=== PATIENT | female | born 1940 | race Caucasian/White ===

== ENCOUNTER 2018-11-18 19:23 | Inpatient (IN) ==
[2018-11-18] MEDS ORDERED: ZOFRAN IV ONE (20:30)
[2018-11-18] MEDS ORDERED: NS 1,000 ML IV ONE (20:30)
[2018-11-18 20:53] LABS: BASO# 0.04 X1000 (0.0-0.2); BASO% 0.5 % (0.0-0.8); EOS# 0.16 X1000 (0.0-0.7); HEMATOCRIT 39.4 % (37.0-47.0); HEMOGLOBIN 12.4 g/dL (12.0-16.0); IMM GRAN# 0.02 X1000 (0.0-0.04); IMM GRAN% 0.2 % (0.0-0.5); LYMPH# 1.41 X1000 (1.2-3.4); LYMPH% 17.6 % (20.5-51.1); MCH 28.5 PG (27-31); MCHC 31.5 g/dL (33-37); MCV 90.6 FL (81-99); MONO# 0.76 X1000 (0.11-0.59); MONO% 9.5 % (1.7-9.3); MPV 9.5 FL (7.4-10.4); NEUT# 5.62 X1000 (1.4-6.5); NEUT% 70.2 % (42.2-75.2); PLT 368 X1000 (130-400); RBC 4.35 XMIL (4.2-5.4); WBC 8.01 X1000 (4.8-10.8)
--- NOTE | 2018-11-18 20:59 | Diag Imaging Result Doc PS360 ---
EXAM: CHEST-2 VIEWS - 11/18/2018 HISTORY: fevers TECHNIQUE: Chest two views, 01/19/2018 chest two views COMPARISON: 08/16/2018 portable chest FINDINGS: Heart size is normal. There are apparent mild COPD/emphysematous changes. There is stable mild scarring at the anterior base of the chest. There are no acute changes identified. There is no consolidation, pleural effusion, or pneumothorax identified. IMPRESSION: Mild COPD/emphysematous changes. No other evidence of acute disease. Electronically signed by Marty Landis 11/18/2018 8:57 PM
[2018-11-18 21:08] LABS: AGAP 10; ALB/GLOB RATIO 1.5; ALBUMIN 4.4 g/dL (3.5-5.0); ALKALINE PHOSPHATASE 76 U/L (32-104); AMYLASE 52 U/L (20-200); BUN 6 mg/dL (8-22); CALCIUM 9.9 mg/dL (8.8-10.2); CHLORIDE 94 mmol/L (98-107); COSMO 271; CREATININE 0.5 mg/dL (0.5-0.9); ESTIMATED GFR > 60; GLUCOSE 98 mg/dL (70-104); GOT 23 U/L (10-30); GPT 21 U/L (10-36); LIPASE 21 U/L (13-60); POTASSIUM 3.9 mmol/L (3.5-5.1); SODIUM 137 mmol/L (136-145); TCO2 33 mmol/L (25-35); TOTAL BILIRUBIN 0.16 mg/dL (0.20-1.00); TOTAL PROTEIN 7.4 g/dL (6.3-8.3)
[2018-11-18 21:26] LABS: URINE SOURCE CLEAN CATCH
[2018-11-18 21:30] LABS: BILIRUBIN URINE NEGATIVE (NEGATIVE); BLOOD URINE NEGATIVE (NEGATIVE); COLOR YELLOW; GLUCOSE URINE NEGATIVE (NEGATIVE); KETONE URINE NEGATIVE (NEGATIVE); LEUKOCYTES URINE LARGE (NEGATIVE); NITRITE URINE NEGATIVE (NEGATIVE); PROTEIN URINE 70 mg/dL (NEGATIVE); SP GRAVITY URINE 1.014; TURBIDITY URINE CLEAR (CLEAR); UROBILINOGEN URINE NORMAL (NORMAL)
[2018-11-18 21:31] LABS: UR EPITHELIAL CELLS <10 /HPF (<10); URINE BACTERIA NEGATIVE /HPF; URINE RBC <10 /HPF (<10); URINE WBC TNTC /HPF (<10)
--- NOTE | 2018-11-18 21:47 | PROVIDER DOCUMENTATION ---
This chart was entered by Ava Gutierrez Scribe, acting as scribe for Rossy Castellanos MD. HPI-General Adult - General Chief Complaint: General Adult Stated Complaint: FEVER, NAUSEA Time Seen by Provider: 11/18/18 19:35 Source: patient Allergies/Adverse Reactions: Patient Allergies Allergy/AdvReac Type Severity Reaction Status Date / Time benazepril HCl * Allergy Unknown Unknown Verified 08/16/18 12:35 [From Lotrel] codeine Allergy Unknown Unknown Verified 08/16/18 12:35 dexamethasone Allergy Unknown Unknown Verified 08/16/18 12:35 ibandronate sodium Allergy Unknown Unknown Verified 08/16/18 12:35 [From Boniva] nebivolol HCl * Allergy Unknown Unknown Verified 08/16/18 12:35 [From Bystolic] amlodipine besylate * Allergy Unknown Verified 08/16/18 12:35 [From Lotrel] bacitracin [From Polysporin] Allergy Unknown Verified 08/16/18 12:35 polymyxin B sulfate * Allergy Unknown Verified 08/16/18 12:35 [From Polysporin] Home Medications: Home Medication List Medication Instructions Recorded Confirmed Last Taken Type Budesonide/Formoterol Fumarate 4 puff INH DAILY 10/08/13 12/29/17 01/09/17 17:00 History [Symbicort 160-4.5 Mcg Inhaler] Ergocalciferol (Vitamin D2) 2,000 units PO DAILY 10/08/13 12/29/17 12/29/17 06:30 History [Vitamin D] Tiotropium [place] Inhaler 1 cap INH DAILY 10/08/13 12/29/17 01/09/17 13:00 History [Spiriva] Omeprazole [Prilosec] 40 mg PO DAILY@0700 #0 capsule 04/13/15 12/29/17 12/29/17 06:30 Rx Loratadine 10 mg PO DAILY #30 tablet 04/15/15 12/29/17 12/29/17 06:30 Rx Albuterol Sulfate [Proair Hfa] 2 puff IH Q4H PRN PRN 01/09/17 12/29/17 12/29/17 06:30 History Multivitamin with Minerals [Hair, 1 each PO DAILY 01/09/17 12/29/17 01/09/17 13:00 History Skin & Nails] Ondansetron [Zofran] 4 mg PO Q6H PRN PRN #20 tablet 01/10/17 12/29/17 Unknown Rx Hydralazine [Apresoline] 25 mg PO BID #60 tab 01/03/18 Unknown Rx Lorazepam [Ativan] 0.5 mg PO BID PRN PRN #0 01/03/18 12/30/17 12/29/17 09:00 Rx Prednisone 10 mg PO DAILY #30 tab 01/03/18 Unknown Rx - History of Present Illness -Gen Adult Nature of Presenting Problems: Pt is 78/F presenting to ED w/ c/o nausea, h/a and elevated BP,HR and fever of 101 at home. She sts that she took 2 Tylenol. She denies any diarrhea or constipation and denies ABD pain. Denies any dysuria or cough or congestion. SX all started today around 3pm. HX of HTN and COPD. Pt is on home oxygen. Location of Pain/Injury: reports: abdomen (nausea) Severity: reports: mild Onset/Duration: reports: 4-6 hours ago Timing: reports: still present Context/Activities at Onset: reports: none Modifying Factors: improves with: nothing Associated Symptoms: reports: fever/chills, nausea. denies: chest pain, constipation, diaphoresis, diarrhea, shortness of breath, vomiting Similar Symptoms Previously?: No Recently seen or treated by another doctor?: No Review of Systems - Adult - REVIEW OF SYSTEMS - ADULT Constitutional: reports: no symptoms reported. denies: chills, fever Eyes: reports: no symptoms reported Ears, Nose, Mouth & Throat: reports: no symptoms reported Cardiovascular: reports: no symptoms reported. denies: chest pain Respiratory: reports: no symptoms reported. denies: cough, shortness of breath Gastrointestinal: reports: nausea. denies: abdominal pain, constipation, diarrhea, vomiting Genitourinary: reports: no symptoms reported Musculoskeletal: reports: no symptoms reported Integumentary: reports: no symptoms reported Neurological: reports: no symptoms reported. denies: dizziness/vertigo, headache/migraines Psychiatric: reports: no symptoms reported Endocrine: reports: no symptoms reported Hematologic/Lymphatic: reports: no symptoms reported Allergic/Immunologic: reports: no symptoms reported All Other Systems: Reviewed and Negative Past History - Adult - PAST MEDICAL HISTORY-ADULT Review of Records: reports: Old Records Reviewed, Nursing Assessment Review, Medications Reviewed, Social history reviewed & non-contributory. Major Childhood Illnesses: reports: denies history Cardiovascular: reports: denies history, HTN Respiratory: reports: denies history, COPD Gastrointestinal: reports: denies history, GERD Obstetrical/Gynecological: reports: denies history Genitourinary: reports: denies history Musculoskeletal: reports: denies history Neurological: reports: denies history, headaches/migraines Endocrine/Immune: reports: denies history Other Conditions: reports: denies history - PRIOR SURGERIES/PROCEDURES Surgical/Procedure History: reports: hysterectomy, tonsillectomy - IMMUNIZATION STATUS Childhood Immunizations: See Nurse Assessment Flu Vaccine: See Nurse Assessment - FAMILY HISTORY Family History: reviewed, not pertinent - SOCIAL HISTORY Smoking: quit greater than 1 year Substance Use: none/never Alcohol Use Frequency: never Living Situation: family Physical Exam-General - PHYSICAL EXAM-ADULT Initial Vital Signs Reviewed: Yes - CONSTITUTIONAL General Appearance: appears well, alert, mild distress (uncomfortable appearing) - EYES Eyes: PERRL/EOMI, pink conjunctivae - NECK Neck: non-tender, full range of motion, supple, normal inspection - RESPIRATORY Respiratory: chest non-tender, decreased breath sounds (mildly decreased breath sounds), wheezing (scant wheezing) - CARDIOVASCULAR Cardiovascular: normal peripheral pulses, no murmur, tachycardia (103, mildly tachycardic) - GASTROINTESTINAL (ABDOMEN) Abdominal Exam: normal bowel sounds, non tender, soft - LYMPHATIC Lymphatic: no adenopathy - MUSCULOSKELETAL Back Exam: normal inspection, no CVA tenderness, no vertebral tenderness Extremity: normal range of motion, non-tender, normal gait, normal inspection - SKIN Integumentary: normal color, warm/dry - NEUROLOGIC Neurologic: grossly normal - PSYCHIATRIC Psych/Mental Status: normal mood/affect, normal thought content, normal thought process, oriented x 3 Progress - PLAN OF CARE/RESULTS Progress/Plan/Lab Results: Vital Signs - 8 hr 11/18/18 19:28 Temperature 97.5 F L Pulse Rate 103 H Respiratory Rate 22 Blood Pressure 186/83 O2 Sat by Pulse Oximetry 98 Patient with weakly positive UA with LE but negative bacteria. Will treat given that there is no other source. She has had no fevers here but took tylenol prior to arrival. WBC normal. CT showing nothing acute except for distended GB without stones. SPoke to Dr Andujar about OBS admission to wait for urine culture, monitor for fever and get a possible RUQ US in the AM. He accepted for OBS admission. Further orders to be placed by hospitalist team. Nausea well controlled at this time. Result Diagrams: 11/18/18 20:08 11/18/18 20:08 - CT/MRI 1 CT Study: Abdomen Impression: See EMR Report (Sequela prior granulomatous infection, no acute intraperitoneal abnormality, no free air or fluid, distended gallbladder without stones, extensive diverticulosis of the descending and sigmoid colon segments without inflammation.) - CONSULTS/PCP/HOSPITALIST Notification #1 *Consult/PCP/Hospitalist*: Dr Andujar Time Discussed: 00:03 Consult Disposition: Admit Departure - Departure Date of Disposition Decision: 11/19/18 Time of Disposition Decision: 00:01 DIAGNOSIS: Nausea & vomiting Qualifiers: Vomiting Intractability: non-intractable UTI (urinary tract infection) Qualifiers: Urinary tract infection type: acute cystitis Hematuria presence: without hematuria Qualified Code(s): N30.00 - Acute cystitis without hematuria Disposition: ADMITTED INPATIENT 09 Certified Medical Emergency: Emergent Condition: Stable Referrals and Follow-Ups: Zion Bergman DO [Primary Care Provider] - - Critical Care Note This patient required my direct & personal management of CC.: No Attestation - Physician/ MOSES Attestation Patient care was provided by Advanced Practice Provider:: No The physician spent face to face time with patient:: Yes Advanced Practice Provider documentation review:: Supervising physician onsite and consulted in the evaluation and care of this patient. The physician did have a face to face encounter with the patient. This chart was documented by the indicated scribe, (Ava Gutierrez Scribe) and accurately reflects the services I performed and decisions made by me, Rossy Castellanos MD, as attested by the provider's signature.
[2018-11-19] MEDS ORDERED: ROCEPHIN 1 GM in NS 50 ML IV ONE (00:01)
[2018-11-19] MEDS ORDERED: ZOFRAN IV ONE (00:07)
[2018-11-19] MEDS ORDERED: ZOFRAN IV PRN (03:11)
[2018-11-19] MEDS: NS 1,000 ML IV SCH ×2 (03:49→18:58)
--- NOTE | 2018-11-19 04:38 | HISTORY AND PHYSICAL ---
PRIMARY CARE PHYSICIAN: Dr. Zion Bergman. CHIEF COMPLAINT: Nausea, fever. HISTORY OF PRESENTING ILLNESS: A 78-year-old female with a history of COPD on 4 L of home oxygen and hypertension had presented to emergency department with several days history of having persistent nausea. The patient states that today she was having some fevers. The patient subsequently had come to the emergency department. In the ED, she was evaluated and due to her presenting symptoms it was thought that we will place her for observation for further evaluation and management. At the time of my examination, patient denied any headache, chest pain, shortness of breath or any weight changes, but complained of having fever and persistent nausea. PAST MEDICAL HISTORY: Includes COPD on home oxygen and hypertension. PAST SURGICAL HISTORY: Tonsillectomy, hysterectomy. ALLERGIES: Codeine and dexamethasone, benazepril. CURRENT MEDICATIONS: Include albuterol inhaler 2 puffs q.4 hours, hydralazine 25 mg p.o. b.i.d., irbesartan 150 mg p.o. daily, Lorazepam 0.5 mg p.o. b.i.d., omeprazole 40 mg p.o. daily. SOCIAL HISTORY: She is a former smoker. No history of alcohol or illicit drug use. FAMILY HISTORY: Positive for coronary artery disease in mother. REVIEW OF SYSTEMS: Fourteen point review of systems as listed in HPI. Other systems negative. PHYSICAL EXAMINATION: GENERAL: Cooperative, friendly elderly female. She is resting more comfortably now. VITAL SIGNS: Temperature 97.5 degrees, pulse 103, respirations 22, blood pressure 186/83. HEENT: Atraumatic, normocephalic. Extraocular movements intact. PERRLA. NECK: No masses. CHEST: Scattered wheezes. CARDIOVASCULAR: Regular rate and rhythm. ABDOMEN: Soft, positive bowel sounds. EXTREMITIES: No edema. NEUROLOGIC: She is awake, alert, oriented x3. GENITOURINARY: No bladder distention. SKIN: Warm. LABORATORIES AND STUDIES: UA shows large leukocytes. Sodium 137, potassium 3.9, chloride 94, CO2 is 33, BUN is 6, creatinine 0.5, glucose 98. WBCs 8.01, hemoglobin 12.4, hematocrit 39.4, platelets 368,000. Chest x-rays shows COPD. ASSESSMENT: A 78-year-old female with a history of chronic obstructive pulmonary disease and hypertension presented to emergency department with several days history of having persistent nausea. Due to her presenting symptoms, we will place her for observation for further evaluation and management. 1. Persistent nausea. 2. Fever. 3. Suspected urinary tract infection. 4. Chronic obstructive pulmonary disease. 5. Hypertension. PLAN: 1. We will admit patient to medical floor with telemetry. 2. We will continue with supportive care with IV fluids, antiemetics. 3. We will check blood cultures. 4. We will check urine cultures. Start patient on empiric antibiotics. 5. Continue with DuoNebs and supplement oxygen. 6. We will monitor blood pressure. Resume antihypertensive agent. 7. Put patient on DVT prophylaxis with SCD. 8. We will continue to follow, and reassess and make further recommendation based on patient's clinical course. cc: MD Zion Dyer DO
[2018-11-19] MEDS: PRILOSEC PO SCH (06:01)
--- NOTE | 2018-11-19 07:15 | Diag Imaging Result Doc PS360 ---
EXAM: CT ABD/PELVIS W/IV CONT ONLY 11/18/2018 HISTORY: nausea, vomiting, fevers TECHNIQUE: This exam was performed using automated exposure control, adjustment of mA or kV according to patient size, and/or use of iterative reconstruction technique. COMMENT: The current examination is compared with the previous study of 04/10/2015. There are emphysematous changes in the lung bases as well as some fibrosis in the right middle lobe and lingula. There is a calcified nodule just above the right hemidiaphragm in the right lower lobe. There has been no appreciable change in the visualized portion of the chest since the previous study. There are numerous granulomata present in the liver and spleen. The adrenal glands are not enlarged. The aorta is partially calcified but there is no evidence of aneurysm. The mesenteric and renal arteries are patent. The pancreas is within normal limits. There are no apparent gallstones. The adrenal glands are not enlarged. The kidneys are without evidence of hydronephrosis or mass. There is some diverticulosis in the colon. There is a fair amount of stool in the ascending colon. The small bowel is not distended. Pelvis: There is no evidence of significant adenopathy or free fluid. There has been hysterectomy. There is marked diverticulosis in the sigmoid colon without evidence of active diverticulitis. The appendix is unremarkable. The urinary bladder is not distended. There is bilateral spondylolysis at L5. There are degenerative disc changes in the lumbar spine with mild curvature to the right. Compared to the previous study the appearance of the abdomen and pelvis has not changed significantly. IMPRESSION: Mild constipation and diverticulosis coli. No evidence of acute disease. COPD. Granulomatous changes. Electronically signed by Booker Gary 11/19/2018 7:12 AM
[2018-11-19] MEDS: DUONEB (A & A) INH PRN ×3 (07:58→21:36)
[2018-11-19] MEDS: APRESOLINE PO SCH ×2 (08:38→21:58)
[2018-11-19] MEDS: AVAPRO PO SCH (08:38)
[2018-11-19] MEDS: MIRALAX PO SCH ×2 (08:48→21:58)
[2018-11-19] MEDS: ATIVAN PO PRN ×2 (10:45→21:58)
--- NOTE | 2018-11-19 11:11 | GASTROENTEROLOGY CONSULTATION ---
DATE: 11/19/2018 ATTENDING PHYSICIAN: Dr. Bray. PRIMARY CARE PHYSICIAN: Dr. Zion Bergman. REASON FOR CONSULTATION: Nausea. HISTORY OF PRESENT ILLNESS: Ms. Camacho is a 78-year-old female who was admitted on 11/19/2018 for nausea and fever. The patient has history of COPD, and she is on 4 L home oxygen. She has history of chronic hypertension. According the patient, at home her blood pressure shot up, and she became nauseous and presented to the ER. In the hospital, she had imaging in the form of CAT scan which showed: 1. Mild constipation. 2. Diverticulosis coli. 3. Chronic obstructive pulmonary disease. 4. Granulomatous changes. 5. No apparent gallstones. 6. Fair amount of stool in the ascending colon. 7. Marked diverticulosis in the sigmoid colon without evidence of diverticulitis. 8. Status post hysterectomy. The patient denies any vomiting or vomiting blood. She has had an EGD and colonoscopy few years per Dr. Gutierrez. PAST MEDICAL HISTORY: 1. COPD, on home oxygen. 2. Hypertension. 3. Constipation. 4. Diverticulosis. PAST SURGICAL HISTORY: Tonsillectomy, hysterectomy, EGD, colonoscopy. ALLERGIES: Codeine, dexamethasone, and benazepril. SOCIAL HISTORY: She is a former smoker with no history of alcohol or illicit drug abuse. FAMILY HISTORY: Positive for coronary artery disease in mother. REVIEW OF SYSTEMS: A 14 point review of systems is as listed in HPI. Other systems negative. MEDICATIONS IN THE HOSPITAL: Include Dulcolax 10 mg per rectum at bedtime, albuterol/ipratropium, hydralazine, Avapro, Ativan, normal saline 80 mL/h, Prilosec 40 mg daily, Zofran 4 mg IV every 4 hours, MiraLAX 17 g p.o. b.i.d., ceftriaxone once daily. The patient is currently n.p.o. PHYSICAL EXAMINATION: Vital signs: Temperature of 98.3 degrees, pulse 104, respiratory rate 22, blood pressure 162/70, saturating 99% on 4 L nasal cannula. Weight: Body weight of 105 pounds 14.4 ounces. BMI 21.41 kg/m2. General Appearance: Ms. Camacho is moderately built, moderately nourished, lying in bed, in no acute distress. HEENT: No pallor. No icterus. Pupils equal and reactive to light. The neck is supple. The abdomen is soft, nontender, nondistended. No guarding or rebound. Extremities: No cyanosis, clubbing. Neurologic: Alert, awake, oriented x3. DIAGNOSTIC STUDIES: Hemoglobin 12.4, hematocrit 39.4, white count of 8.01, platelet count of 368,000. Sodium 137, potassium 3.9, chloride 94, bicarbonate 36, anion gap 10, BUN 6, creatinine 0.5, glucose of 98, calcium 9.9, total bilirubin 0.16, AST 23, ALT 21, alkaline phosphatase 76, total protein 7.4, albumin 4.4. Amylase 52, lipase 21. Lactate 1. Urinalysis showing positive protein, large leukocytes. Urine culture preliminary showing no growth. Flu screen is negative for A and B. Blood culture times x2 are currently drawn. They are pending. IMPRESSION AND PLAN: 1. Nausea. 2. Fever, but since being in the hospital, her vitals have not documented fever as of yet. 3. Suspected urinary tract infection. 4. Chronic obstructive pulmonary disease, on home oxygen at 4 L. 5. Former smoker. 6. Diverticulosis. 7. Constipation in the right colon. 8. Hypertension. RECOMMENDATIONS: 1. She has been galvan cultured. Follow the results of the cultures. 2. Continue IV fluids and IV antiemetics. 3. We will start her on MiraLAX twice daily. 4. We will start her on Dulcolax 10 mg once daily. 5. We will start her on liquid diet today. 6. We will start on PPIs in the form of Prilosec once daily. 7. The patient will continue on DuoNeb and supplemental oxygen per the primary team. 8. She has possible UTI. She is on empiric antibiotics of ceftriaxone with the primary team. 9. GI prophylaxis with PPIs. 10. Deep venous thrombosis prophylaxis with SCDs. We will follow along. The above plans were discussed with the patient, and all questions were answered. Please call us with any further questions. cc: MD Zion Soto DO Lloyd James, MD MTDD
[2018-11-19] MEDS: DULCOLAX PR SCH (21:58)
[2018-11-20] MEDS: ROCEPHIN 1 GM in NS 50 ML IV SCH (00:58)
[2018-11-20] MEDS: DUONEB (A & A) INH PRN ×2 (03:47→07:40)
[2018-11-20] MEDS: PRILOSEC PO SCH (06:34)
[2018-11-20 06:36] LABS: HEMATOCRIT 36.5 % (37.0-47.0); HEMOGLOBIN 11.4 g/dL (12.0-16.0); MCHC 31.2 g/dL (33-37); MCV 92.9 FL (81-99); PLT 333 X1000 (130-400); RBC 3.93 XMIL (4.2-5.4); RDW 12.1 % (11.5-14.5); WBC 6.62 X1000 (4.8-10.8)
[2018-11-20 06:37] LABS: BASO# 0.05 X1000 (0.0-0.2); BASO% 0.8 % (0.0-0.8); EOS# 0.21 X1000 (0.0-0.7); EOS% 3.2 % (0.0-10.0); LYMPH% 24.2 % (20.5-51.1); MONO# 0.75 X1000 (0.11-0.59); MONO% 11.3 % (1.7-9.3); MPV 9.5 FL (7.4-10.4); NEUT# 4.01 X1000 (1.4-6.5); NEUT% 60.5 % (42.2-75.2)
[2018-11-20 06:48] LABS: AGAP 8; BUN 3 mg/dL (8-22); CALCIUM 9.1 mg/dL (8.8-10.2); CHLORIDE 101 mmol/L (98-107); COSMO 279; CREATININE 0.5 mg/dL (0.5-0.9); ESTIMATED GFR > 60; GLUCOSE 92 mg/dL (70-104); POTASSIUM 3.5 mmol/L (3.5-5.1); SODIUM 142 mmol/L (136-145); TCO2 33 mmol/L (25-35)
[2018-11-20] MEDS: APRESOLINE PO SCH (08:40)
[2018-11-20] MEDS: AVAPRO PO SCH (08:40)
[2018-11-20] MEDS: MIRALAX PO SCH ×2 (08:40→21:07)
[2018-11-20] MEDS ORDERED: CARDIZEM IV ONE (09:06)
[2018-11-20] MEDS ORDERED: CARDIZEM 125 MG in D5W 100 ML IV SCH (09:15)
--- NOTE | 2018-11-20 09:33 | Diag Imaging Result Doc PS360 ---
CHEST-1 VIEW - 11/20/2018 INDICATION: positive sepsis screen COMPARISON: 11/18/2018 FINDINGS: The lungs are normally expanded and clear. Heart size and mediastinal contours are normal. No pneumothorax or pleural effusion. IMPRESSION: Negative exam. Electronically signed by Josr Nicholas 11/20/2018 9:30 AM
--- NOTE | 2018-11-20 09:47 | EKG Report ---
Test Performed on : 11/20/2018 09:31:03 AM Test Reason : afib Blood Pressure : / mmHG Vent. Rate : 157 BPM Atrial Rate : 312 BPM P-R Int : 000 ms QRS Dur : 068 ms QT Int : 236 ms P-R-T Axes : 270 080 069 degrees QTc Int : 381 ms Atrial flutter. with variable AV block. with premature ventricular or aberrantly conducted complexes. Marked ST abnormality, possible inferior subendocardial injury Abnormal ECG When compared with ECG of 16-AUG-2018 12:28, Atrial flutter. has replaced Sinus rhythm. Vent. rate has increased BY [address] now depressed in Inferior leads ST now depressed in Anterolateral leads T wave amplitude has decreased in Lateral leads Confirmed by Gisele TAYLOR, Eugene Mcleod ([id number]) on 11/20/2018 5:31:35 PM
[2018-11-20 10:16] LABS: URINE SOURCE CLEAN CATCH
[2018-11-20 10:18] LABS: BASO# 0.05 X1000 (0.0-0.2); BASO% 0.5 % (0.0-0.8); HEMATOCRIT 39.8 % (37.0-47.0); HEMOGLOBIN 12.7 g/dL (12.0-16.0); LYMPH# 1.41 X1000 (1.2-3.4); LYMPH% 14.1 % (20.5-51.1); MCH 29.3 PG (27-31); MCHC 31.9 g/dL (33-37); MCV 91.7 FL (81-99); MONO# 0.83 X1000 (0.11-0.59); MONO% 8.3 % (1.7-9.3); MPV 9.6 FL (7.4-10.4); NEUT# 7.54 X1000 (1.4-6.5); NEUT% 75.1 % (42.2-75.2); PLT 373 X1000 (130-400); RBC 4.34 XMIL (4.2-5.4); RDW 12.2 % (11.5-14.5); WBC 10.03 X1000 (4.8-10.8)
[2018-11-20 10:22] LABS: BILIRUBIN URINE NEGATIVE (NEGATIVE); BLOOD URINE TRACE (NEGATIVE); COLOR STRAW; GLUCOSE URINE NEGATIVE (NEGATIVE); KETONE URINE 10 mg/dL (NEGATIVE); LEUKOCYTES URINE NEGATIVE (NEGATIVE); NITRITE URINE NEGATIVE (NEGATIVE); PROTEIN URINE TRACE mg/dL (NEGATIVE); SP GRAVITY URINE 1.003; TURBIDITY URINE CLEAR (CLEAR); UROBILINOGEN URINE NORMAL (NORMAL)
[2018-11-20 10:25] LABS: INR 0.84; PROTIME 12.3 Seconds (11.0-16.0)
[2018-11-20 10:25] LABS: UR EPITHELIAL CELLS <10 /HPF (<10); URINE BACTERIA NEGATIVE /HPF; URINE RBC <10 /HPF (<10); URINE WBC <10 /HPF (<10)
[2018-11-20 10:26] LABS: PTT 35.8 Seconds (22.3-41.8)
[2018-11-20 10:35] LABS: AGAP 10; ALB/GLOB RATIO 1.3; ALKALINE PHOSPHATASE 70 U/L (32-104); BUN 3 mg/dL (8-22); CALCIUM 9.8 mg/dL (8.8-10.2); CHLORIDE 97 mmol/L (98-107); CK PROFILE 279 U/L (24-173); COSMO 276; CREATININE 0.5 mg/dL (0.5-0.9); ESTIMATED GFR > 60; GLUCOSE 131 mg/dL (70-104); GOT 28 U/L (10-30); GPT 21 U/L (10-36); POTASSIUM 3.1 mmol/L (3.5-5.1); SODIUM 139 mmol/L (136-145); TCO2 32 mmol/L (25-35); TOTAL PROTEIN 7.1 g/dL (6.3-8.3)
[2018-11-20 10:52] LABS: CK INDEX 2.8 (0.0-2.5); CK-MB 7.95 ng/mL (0.0-5.0)
[2018-11-20 10:55] LABS: FREE T4 1.41 ng/dL (0.93-1.70); TSH 1.85 uIUmL (0.27-4.20)
[2018-11-20] MEDS ORDERED: KLOR-CON PO ONE (12:36)
[2018-11-20] MEDS ORDERED: XOPENEX NEB INH PRN (12:54)
[2018-11-20] MEDS: SYMBICORT 160/4.5 MICROGM INHALER INH SCH ×2 (13:37→19:35)
[2018-11-20] MEDS: CARDIZEM PO SCH ×2 (13:37→21:06)
[2018-11-20] MEDS: ATIVAN PO PRN ×2 (13:41→19:31)
[2018-11-20] MEDS: ELIQUIS PO SCH ×2 (13:41→21:06)
--- NOTE | 2018-11-20 14:31 | CARDIOLOGY CONSULTATION ---
DATE: 11/20/2018 IMPRESSION: 1. Episodic atrial flutter with rapid ventricular rate. 2. Severe chronic obstructive pulmonary disease. 3. Hypertension. RECOMMENDATIONS: 1. Control heart rate with intravenous Cardizem. Transition to oral Cardizem. 2. Discontinue hydralazine. 3. Prioritize use of diltiazem for both heart rate and high blood pressure. Continue angiotensin receptor blocking agent as permitted. 4. Echocardiography. 5. Given age, gender, and hypertension, she has significant CHADS-VASc score consistent with significant thromboembolic risk. This is sufficient to justify anticoagulation. This was discussed with the patient. HISTORY: This is a 78-year-old white female with past history of hypertension and severe COPD was admitted with symptoms of flushing and mild palpitations. She relates some shortness of breath. She has also had some nausea. While on telemetry, she went into atrial flutter with rapid ventricular rate, and intravenous Cardizem was started. She did transiently converted back to sinus rhythm shortly. She then went back into atrial flutter. She believes she may have felt some palpitations several weeks ago, but palpitations are very mild. There has been no chest pain or angina. There has been no orthopnea. PAST MEDICAL HISTORY: 1. Severe COPD, requiring chronic home oxygen. 2. Hypertension. PAST SURGICAL HISTORY: Includes tonsillectomy and hysterectomy. ALLERGIES: She is allergic or intolerant to codeine, dexamethasone, and benazepril. HOME MEDICATIONS PRIOR TO ADMISSION: As listed. SOCIAL HISTORY: She smoked for many years, although at a rather modest rate of cigarette use of less than a half-pack a day. She does not use alcohol. FAMILY HISTORY: Negative for premature coronary artery disease. REVIEW OF SYSTEMS: Pulmonary: Noteworthy for chronic dyspnea which seems to be worse of late. There has been no orthopnea. Gastrointestinal: Noteworthy for some nausea. GI review of systems otherwise negative. Constitutional: Review of systems negative for fever. Remainder of the review of systems negative/noncontributory with 14 total systems reviewed. PHYSICAL EXAMINATION: General: This is a petite elderly white female in no distress. Vital signs: Blood pressure 169/81, heart rate 100 and irregular with ECG monitor showing atrial flutter with controlled rate response. Weight: 105 pounds. HEENT: Extraocular movements appear intact. Mucous membranes are moist. Neck is supple without jugular venous distention. There are no carotid bruits. Chest is clear to auscultation. Cardiac exam reveals an irregular rate and rhythm without appreciable murmur, rub, or gallop. Abdomen is soft. Bowel sounds are normal. Extremities are without edema. Neurologic exam reveals her to be alert and fully oriented. Speech is fluent. She moves all 4 extremities equally well. Skin is warm and dry. Psychiatric exam reveals her mood to be appropriate. DIAGNOSTIC STUDIES: A 12 lead EKG demonstrates atrial flutter with rapid ventricular rate 157 beats per minute and nonspecific ST and T-wave abnormality. Laboratory data includes sodium 139, potassium 3.1, chloride 97, carbon dioxide 30, BUN 3, creatinine 0.5, glucose 131. Troponin T less than 0.01; follow-up troponin T less than 0.01. TSH 1.85, free T4 of 1.41. Pro-time 12.3. White blood cell count 10.03, hematocrit 39.8, hemoglobin 12.7, platelet count 373,000. cc: Kev Mario MD
--- NOTE | 2018-11-20 15:30 | EKG Report ---
Test Performed on : 11/20/2018 3:23:26 PM Test Reason : rhythm change Blood Pressure : / mmHG Vent. Rate : 081 BPM Atrial Rate : 081 BPM P-R Int : 138 ms QRS Dur : 054 ms QT Int : 354 ms P-R-T Axes : 086 073 070 degrees QTc Int : 411 ms Normal sinus rhythm. Normal ECG When compared with ECG of 20-NOV-2018 09:31, (Unconfirmed) Sinus rhythm. has replaced Atrial flutter. Vent. rate has decreased BY [address] no longer depressed in Inferior leads ST no longer depressed in Anterolateral leads Confirmed by Gisele TAYLOR, Eugene Mcleod ([id number]) on 11/20/2018 5:31:54 PM
[2018-11-20] MEDS: DULCOLAX PR SCH (21:06)
--- NOTE | 2018-11-20 23:37 | PROVIDER PROGRESS NOTE ---
Progress Note SUBJECTIVE: Patient noted to have aflutter with rapid rate today and anxiety attack. No abdominal pain, N/V. OBJECTIVE: Last Vital Signs Temp 98.2 F 11/21/18 00:00 Pulse 70 11/21/18 00:00 Resp 20 11/21/18 00:00 BP 113/39 11/21/18 00:00 Pulse Ox 100 11/21/18 00:00 Height 4 ft 11 in Weight 105 lb 14.4 oz Gen: anxious, NAD HEENT: anicteric, MMM CV: RRR, no murmurs PULM: CTAB ABD: soft NT/ND, NABS EXT: no cce NEURO: nonfocal LABS: 11/20/18 11/20/18 11/20/18 05:55 05:55 09:49 WBC 6.62 Hgb 11.4 L Plt Count 333 Sodium 142 Potassium 3.5 Chloride 101 Carbon Dioxide 33 BUN 3 L Creatinine 0.5 Glucose 92 Total Bilirubin 0.30 AST 28 ALT 21 Alkaline Phosphatase 70 Creatine Kinase 279 H Plasma Lactate 1.2 A/P: Ms. Jayde Camacho ia 78 year old woman with COPD on 4L O2, suspected UTI, constipation, diverticulosis, and new onset aflutter who presents to GI service with nausea. Likely related to underlying UTI vs cardiac vs constipation. No anemia. LFTs, lipase WNL # Nausea: continue empiric PPI, antiemetics prn; advance diet as tolerated # Constipation on imaging: continue bowel regimen # UTI: presumed; defter to primary # Aflutter: defer to cardiology # COPD: on 02 Will sign off. Please call with questions
--- NOTE | 2018-11-20 23:40 | ECHO REPORT ---
ORDER DATE: 11/20/2018 MEASUREMENTS: Septal thickness 0.8, left ventricular internal diameter in diastole 4.2, posterior wall thickness 0.8, left ventricular internal diameter in systole 2.8, aortic root 3.2, left atrium 3.4. SUMMARY: 1. Adequate quality study. 2. Aortic valve is trileaflet and opens normally on 2-dimensional images. Peak gradient across aortic valve is 11 mmHg. Mitral, tricuspid, and pulmonic valves are without evidence of structural abnormality with trace mitral regurgitation. The aortic root is normal in size. 3. Normal left ventricular dimensions demonstrated. Estimated left ejection fraction appears to be approximately 65%. No regional wall motion is evident. Left atrium, right atrium, right ventricle are normal in size with normal right ventricular systolic function. 4. No pericardial effusion. 5. Appearance of the inferior vena cava suggests normal central venous pressure. CONCLUSIONS: 1. No significant valvular abnormality. 2. Normal left ventricular systolic function without wall motion abnormality evident. cc: MD Colleen Dey PA
[2018-11-21] MEDS: ROCEPHIN 1 GM in NS 50 ML IV SCH (01:15)
[2018-11-21] MEDS: CARDIZEM PO SCH ×4 (01:16→21:08)
--- NOTE | 2018-11-21 04:10 | PROGRESS NOTE ---
DATE: 11/20/2018 SUBJECTIVE: The patient was noted to be in atrial flutter this morning and was subsequently transferred to CICU. She received 20 mg of IV Cardizem and was placed on a Cardizem drip. OBJECTIVE: Vital Signs: Temperature 98.3 degrees, blood pressure 132/82, heart rate 97, respirations 16, O2 saturation 100% on 4 L nasal cannula. General: This is a chronically ill- appearing, elderly female lying in bed in no acute distress. Heart: S1, S2, normal. Regular rate and rhythm. Lungs: Clear to auscultation bilaterally. Abdomen: Positive bowel sounds. Soft, nontender, nondistended. Extremities: No edema, no cyanosis. Neurologic: The patient is alert and oriented x3. LABS: Reviewed. ASSESSMENT AND PLAN: 1. Atrial flutter. The patient is currently on a Cardizem drip. We will follow the recommendations as stated by the grocery checker. 2. Chronic obstructive pulmonary disease. Continue with bronchodilator therapy and supplemental oxygen. 3. Constipation. Continue with scheduled laxative therapy. 4. Gastroesophageal reflux disease. Continue on Prilosec. 5. Hypertension. Continue on the current antihypertensive regimen. 6. UTI. Culture revealed mixed rhianna. Continue on Rocephin. 7. Deep vein thrombosis prophylaxis. Will start the patient on Lovenox. cc: Flora Soliz MD MTDD
[2018-11-21] MEDS: PRILOSEC PO SCH (06:25)
--- NOTE | 2018-11-21 07:13 | EKG Report ---
Test Performed on : 11/21/2018 06:58:03 AM Test Reason : rhythm change Blood Pressure : / mmHG Vent. Rate : 078 BPM Atrial Rate : 078 BPM P-R Int : 132 ms QRS Dur : 066 ms QT Int : 372 ms P-R-T Axes : 088 083 083 degrees QTc Int : 424 ms Sinus rhythm. with occasional premature ventricular complexes. Otherwise normal ECG When compared with ECG of 20-NOV-2018 15:23, premature ventricular complexes. are now present Confirmed by Gisele TAYLOR, Eugene Mcleod ([id number]) on 11/21/2018 3:52:57 PM
[2018-11-21] MEDS: SPIRIVA INH SCH (07:51)
[2018-11-21] MEDS: SYMBICORT 160/4.5 MICROGM INHALER INH SCH ×2 (07:51→20:05)
[2018-11-21] MEDS: AVAPRO PO SCH (08:15)
[2018-11-21] MEDS: ELIQUIS PO SCH ×2 (08:15→21:08)
[2018-11-21 08:44] LABS: MAGNESIUM 1.8 mg/dL (1.5-2.7); PHOSPHORUS 3.3 mg/dL (2.7-4.5)
[2018-11-21 08:54] LABS: HEMATOCRIT 32.3 % (37.0-47.0); HEMOGLOBIN 10.4 g/dL (12.0-16.0); MCH 29.7 PG (27-31); MCHC 32.2 g/dL (33-37); MCV 92.3 FL (81-99); MPV 9.6 FL (7.4-10.4); RBC 3.5 XMIL (4.2-5.4); RDW 12.1 % (11.5-14.5); WBC 8.6 X1000 (4.8-10.8)
[2018-11-21] MEDS: MIRALAX PO SCH (09:03)
[2018-11-21 09:08] LABS: AGAP 9; BUN 6 mg/dL (8-22); CALCIUM 9.1 mg/dL (8.8-10.2); CHLORIDE 96 mmol/L (98-107); COSMO 269; CREATININE 0.6 mg/dL (0.5-0.9); ESTIMATED GFR > 60; GLUCOSE 115 mg/dL (70-104); POTASSIUM 4.2 mmol/L (3.5-5.1); SODIUM 135 mmol/L (136-145); TCO2 30 mmol/L (25-35)
[2018-11-21] MEDS ORDERED: XOPENEX HFA INH PRN (17:54)
--- NOTE | 2018-11-21 17:55 | PROGRESS NOTE ---
DATE: 11/21/2018 SUBJECTIVE: The patient is resting comfortably in bed. She states that she feels a lot better today. She denies having any chest pain, palpitations, or abdominal pain. OBJECTIVE: Vital Signs: Temperature 98.4 degrees, blood pressure 136/50, heart rate 82, respirations 19, O2 saturation is 100% on 3 L nasal cannula. General: This is a chronically ill- appearing, elderly female lying in bed, in no acute distress. Heart: S1, S2 normal. Regular rate and rhythm. Lungs: Clear to auscultation bilaterally. Abdomen: Positive bowel sounds. Soft, nontender, nondistended. Extremities: No edema. No cyanosis. Neurologic: The patient is alert and oriented x4. LABS: Hemoglobin 10, hematocrit 32, platelets 335,000. Sodium 135, potassium 4.2, chloride 96, CO2 30, BUN 6, creatinine 0.6, glucose 115, phosphorus 3.3, magnesium 1.8. ASSESSMENT AND PLAN: 1. Atrial flutter. The patient is now in normal sinus rhythm. Continue on oral Cardizem. 2. Chronic obstructive pulmonary disease. Stable. Continue with bronchodilator therapy and supplemental oxygen. 3. Constipation. Improved. The patient is now having bowel movements. 4. Urinary tract infection. Continue on Rocephin. We will likely transition to an oral antibiotic tomorrow. 5. Deep vein thrombosis prophylaxis. Continue on Lovenox. 6. Disposition. Physical therapy has been consulted. Hopefully, the patient can be discharged home tomorrow. cc: Flora Soliz MD
--- NOTE | 2018-11-21 18:26 | PROGRESS NOTE ---
DATE: 11/21/2018 SUBJECTIVE: The patient reports some shortness of breath after getting up ad going to the bathroom despite her supplemental oxygen per nasal cannula. She has not had any further atrial tachyarrhythmias. Review of telemetry shows that she had some atrial fibrillation as well as atrial flutter. It is not clear if episodes seem to have followed her use of bronchodilator inhalers. OBJECTIVE: Vital Signs: Blood pressure 136/50, heart rate 82, oxygen saturation 100% on nasal cannula oxygen at 3 L/minute. Neck: There is no significant jugular venous distention. Chest: Auscultation of chest reveals diminished breath sounds diffusely. Cardiac: Regular rate and rhythm with somewhat distant heart sounds. There is no evidence of peripheral edema. LABORATORY DATA: Includes a white blood cell count of 8.6, hematocrit 32.3, hemoglobin 10.4, platelet count 335. Sodium 135, potassium 4.2, chloride 96, carbon dioxide 30, BUN 6, creatinine 0.6, glucose 115. IMPRESSION: 1. Paroxysmal atrial arrhythmias with patient manifesting both atrial flutter and atrial fibrillation. She continues in sinus rhythm for the last 24 hours. It is not clear, but bronchodilator inhaler may be triggering some of her atrial arrhythmias. 2. Severe chronic obstructive pulmonary disease, requiring chronic home oxygen. 3. Hypertension. RECOMMENDATIONS: 1. Continue current regimen with oral Cardizem and consolidate dose of diltiazem. 2. Continue anticoagulation with Eliquis. 3. Try and use Xopenex for bronchodilator. cc: Kev Mario MD
[2018-11-21] MEDS: ATIVAN PO PRN (21:08)
[2018-11-22] MEDS: ROCEPHIN 1 GM in NS 50 ML IV SCH (02:02)
[2018-11-22] MEDS: PRILOSEC PO SCH (06:26)
[2018-11-22 07:11] LABS: AGAP 11; CHLORIDE 97 mmol/L (98-107); GLUCOSE 92 mg/dL (70-104); POTASSIUM 3.7 mmol/L (3.5-5.1); SODIUM 139 mmol/L (136-145); TCO2 31 mmol/L (25-35)
[2018-11-22 07:12] LABS: BUN 5 mg/dL (8-22); CALCIUM 9.6 mg/dL (8.8-10.2); COSMO 274; CREATININE 0.5 mg/dL (0.5-0.9); ESTIMATED GFR > 60
[2018-11-22] MEDS: SYMBICORT 160/4.5 MICROGM INHALER INH SCH ×2 (07:45→19:30)
[2018-11-22] MEDS: SPIRIVA INH SCH (07:45)
[2018-11-22] MEDS: ELIQUIS PO SCH ×2 (08:41→22:02)
[2018-11-22] MEDS: CARDIZEM CD PO SCH (08:41)
[2018-11-22] MEDS: AVAPRO PO SCH (08:41)
--- NOTE | 2018-11-22 10:48 | PROGRESS NOTE ---
DATE: 11/22/2018 SUBJECTIVE: The patient is resting comfortably in bed. She states that she feels a lot better. She denies having any chest pain, palpitations, or abdominal pain. OBJECTIVE: Vital Signs: Temperature 97.7 degrees, blood pressure 165/59, heart rate 85, respirations 18, O2 saturation is 100% on 3 L nasal cannula. General: This is a chronically ill- appearing elderly female, lying in bed in no acute distress. Heart: S1, S2 normal. Regular rate and rhythm. Lungs: Equal air entry bilaterally. No wheezing. No rales. Abdomen: Positive bowel sounds. Soft, nontender, nondistended. Extremities: No edema, no cyanosis. Neurologic: The patient is alert and oriented x3. LABORATORIES: Reviewed. ASSESSMENT AND PLAN: 1. Paroxysmal atrial flutter. The patient is in normal sinus rhythm. Continue on Cardizem and Eliquis. 2. Chronic obstructive pulmonary disease. Continue with bronchodilator therapy. We will check a CT of the thorax and an ABG. 3. Gastroesophageal reflux disease. Continue on Prilosec. 4. Anxiety disorder. Continue on Ativan as needed. 5. Continue with physical therapy. cc: Flora Soliz MD
--- NOTE | 2018-11-22 10:49 | Diag Imaging Result Doc PS360 ---
EXAM: CT THORAX W/O CONTRAST 11/22/2018 HISTORY: dyspnea/copd TECHNIQUE: This exam was performed using automated exposure control, adjustment of mA or kV according to patient size, and/or use of iterative reconstruction technique. COMMENT: There is severe COPD. This was also the case at the time the previous study of 09/29/2017. There are calcified granulomata in the right lower lobe. There are some platelike opacities present in the right base were also present previously and are likely to be related to fibrosis. A similar appearance is present in the lingula. There is no evidence of acute pulmonary parenchymal disease. There are numerous calcified granulomata in the spleen and liver. There are calcified granulomatous nodes in both suyapa and the subcarina. There are no abnormal fluid collections. The blood pool CT density is less than 30 Hounsfield units and this may indicate anemia. There is no evidence of acute bony abnormality. IMPRESSION: COPD and granulomatous changes. Possible anemia. Electronically signed by Booker Gary 11/22/2018 10:47 AM
[2018-11-22 11:08] LABS: ALLEN TEST YES; BE 7.6 mmoll (-3.0-3.0); BLOOD TYPE ARTERIAL; HCO3-(ACT) 30.8 mmoll (20.0-26.0); METHB 1.4 % (0.0-1.5); O2(CT) 19.3 mL/dL (15.0-23.0); PO2(98.6) 111 mmHg (60-100); SAMPLE BLOOD; SAO2 99.1 % (95.0-100.0); THB 14.2 g/dL (11.5-17.4); pH(98.6) 7.42 (7.35-7.45)
[2018-11-22 11:12] LABS: MODALITY CANNULA; PCO2(98.6) 52 mmHg (35-45)
--- NOTE | 2018-11-22 22:05 | PULMONOLOGY CONSULTATION ---
DATE: 11/22/2018 REQUESTING PHYSICIAN: Dr. Kev Mario. REASON FOR CONSULTATION: COPD. HISTORY OF PRESENT ILLNESS: Ms. Jayde Camacho is a 78-year-old white female with a greater than 50- pack-year history for tobacco (nonsmoker since 2001) who has been followed in my clinic for end- stage COPD since 2013. PFTs 04/03/2014 revealed an FEV1 of 0.5 L or 27% of predicted without improvement following bronchodilator. The patient has had CT scans which revealed diffuse emphysema throughout all lung denis. She has chronic hypoxemic and hypercapnic respiratory failure. The patient presented to the emergency room on November 18 with persistent nausea and fevers. She was treated for urinary tract infection, but urine cultures were negative for pathogens. She was evaluated by GI medicine and treated for constipation. No aggressive GI intervention planned. She has had clinical improvement. Her hospital course has been complicated by paroxysmal atrial flutter and atrial fibrillation. She is being followed by Cardiology. She did undergo a CT scan of the thorax which revealed diffuse and severe emphysematous changes without significant change from 09/29/2017. PAST MEDICAL HISTORY/PROBLEM LIST: 1. End-stage COPD as per above. 2. Chronic hypoxemic respiratory failure. 3. Pulmonary cachexia. 4. History of otitis media. 5. Hiatal hernia. 6. Gastroesophageal reflux. 7. Diverticulosis. 8. Osteopenia. 9. History of constipation. SOCIAL HISTORY: Prior tobacco use as per HPI. No significant alcohol use. FAMILY HISTORY: Positive for heart disease, kidney disease and lung cancer in his sister. REVIEW OF SYSTEMS: As noted in the HPI. PHYSICAL EXAMINATION: General: Reveals a thin, [id number] white female resting comfortably and in no distress. Vital Signs: BP 148/56, heart rate 73, respiratory rate 18, oxygen saturation 100% on 3 L per nasal cannula. HEENT: Pupils are equal and reactive. Oropharynx appears clear. Neck: Supple. Chest: Reveals prolonged expiratory phase without wheezing or rhonchi. Cardiac: S1, S2, irregular rhythm, irregular rate. Abdomen: Scaphoid and soft. Extremities: Without edema. LABORATORY: CT scan as per HPI. Arterial blood gas reveals pH of 7.42, pCO2 of 52, PO2 of 111. White blood count 8.6, hemoglobin 10.4, platelet count 355,000. IMPRESSION: 78-year-old with: 1. End-stage chronic obstructive pulmonary disease. 2. Chronic hypercapnic respiratory failure. 3. Chronic hypoxemic respiratory failure. 4. Pulmonary cachexia. 5. Paroxysmal atrial fibrillation/atrial flutter. 6. Constipation. 7. Gastroesophageal reflux with hiatal hernia. 8. Diverticulosis. RECOMMENDATIONS: Continue current bronchodilators. Although Xopenex was initially marketed to cause less cardiac stimulation than albuterol, this was a poorly controlled study with a very small number and has not been verified. There is no reason to think that Xopenex would stimulate the heart less than albuterol. Xopenex is a stronger agonist and is given in a smaller dose and can be given less frequently than albuterol, but likely when it reaches a point of efficacy, it will have the same cardiac stimulant effect. The patient is currently being rate controlled with diltiazem. Although she has end-stage lung disease, I would not be averse to trying amiodarone if necessary to keep her in sinus rhythm if Cardiology believes this would be of benefit. The patient will continue her oxygen therapy. Her long-term prognosis is guarded to poor. cc: Con Purcell MD
[2018-11-23] MEDS ORDERED: NS 50 ML ONE (00:38)
[2018-11-23] MEDS: ROCEPHIN 1 GM in NS 50 ML IV SCH (00:38)
[2018-11-23 06:21] LABS: HEMATOCRIT 34.3 % (37.0-47.0); HEMOGLOBIN 10.8 g/dL (12.0-16.0); MCH 29.3 PG (27-31); MCHC 31.5 g/dL (33-37); MCV 93.2 FL (81-99); MPV 9.4 FL (7.4-10.4); RBC 3.68 XMIL (4.2-5.4); RDW 11.9 % (11.5-14.5); WBC 6.51 X1000 (4.8-10.8)
[2018-11-23] MEDS: PRILOSEC PO SCH (06:33)
[2018-11-23 06:36] LABS: AGAP 8; BUN 5 mg/dL (8-22); CALCIUM 9.7 mg/dL (8.8-10.2); CHLORIDE 96 mmol/L (98-107); COSMO 273; CREATININE 0.5 mg/dL (0.5-0.9); ESTIMATED GFR > 60; GLUCOSE 103 mg/dL (70-104); POTASSIUM 3.9 mmol/L (3.5-5.1); SODIUM 138 mmol/L (136-145); TCO2 34 mmol/L (25-35)
--- NOTE | 2018-11-23 06:36 | EKG Report ---
Test Performed on : 11/22/2018 7:31:06 PM Test Reason : afib RVR Blood Pressure : / mmHG Vent. Rate : 121 BPM Atrial Rate : 125 BPM P-R Int : 000 ms QRS Dur : 066 ms QT Int : 316 ms P-R-T Axes : 000 068 076 degrees QTc Int : 448 ms Atrial fibrillation. with rapid ventricular response. with premature ventricular or aberrantly conduc sarah complexes. Abnormal ECG When compared with ECG of 21-NOV-2018 06:58, Atrial fibrillation. has replaced Sinus rhythm. Vent. rate has increased BY 43 BPM Confirmed by Gisele TAYLOR, Eugene Mcleod ([id number]) on 11/23/2018 12:30:10 PM
[2018-11-23 07:31] VITALS: BP 121/40
[2018-11-23] MEDS: SPIRIVA INH SCH (07:50)
[2018-11-23] MEDS: SYMBICORT 160/4.5 MICROGM INHALER INH SCH (07:50)
[2018-11-23] MEDS: ELIQUIS PO SCH (08:27)
[2018-11-23] MEDS: CARDIZEM CD PO SCH (08:27)
[2018-11-23] MEDS: AVAPRO PO SCH (08:27)
--- NOTE | 2018-11-24 13:50 | DISCHARGE SUMMARY ---
ADMISSION DATE: 11/20/2018 DISCHARGE DATE: 11/23/2018 FINAL DISCHARGE DIAGNOSES: 1. Paroxysmal atrial flutter and atrial fibrillation. 2. End-stage chronic obstructive pulmonary disease on home oxygen. 3. Hypertension. 4. Anxiety disorder. 5. Gastroesophageal reflux disease. CONSULTATIONS: 1. Pulmonary consultation with Dr. Purcell. 2. Cardiology consultation with Dr. Mario. IMAGIN. Portable chest x-ray performed on 11/18/2018. Mild COPD with emphysematous changes. No acute disease. 2. CT of the abdomen and pelvis performed on 11/18/2018 which revealed mild constipation and diverticulosis. Chronic obstructive pulmonary disease. 3. Echocardiogram performed on 11/20/2018 that revealed normal LV systolic function without wall motion abnormality. EF of 65%. 4. CT of the chest which revealed COPD and granulomatous changes. HOSPITAL COURSE: Ms. Camacho is a 78-year-old female with a history of end-stage COPD, who presented to the ER with a chief complaint of nausea and fever. On admission, there was concern about a urinary tract infection. So, a urinalysis was done and a urine culture was also obtained. After further examination, the patient was noted to be constipated, and so a laxative therapy was initiated. While admitted, the patient was noted to have a heart rate of 150 to 160. Upon further evaluation, the patient was noted to be drifting in and out of atrial flutter and atrial fibrillation. As a result, the patient was transferred to the CICU and started on a Cardizem drip. Cardiology was then consulted for further treatment recommendations. The patient was transitioned to oral Cardizem and Eliquis was initiated. The patient continued to improve clinically and was transferred out of the CICU to a medical bed. The patient was also seen by Dr. Purcell, who recommended that the patient continue on her bronchodilator therapy as ordered. The patient was able to ambulate without any difficulty with physical therapy and was ultimately cleared for discharge on 11/22/2018. DISCHARGE MEDICATIONS: 1. Cardizem CD 180 mg p.o. daily. 2. Eliquis 5 mg p.o. twice a day. 3. Spiriva 1 puff inhaled daily. 4. Symbicort 2 puffs inhaled twice a day. 5. Prilosec 40 mg p.o. daily. 6. Multivitamin 1 tab oral daily. 7. ProAir 2 puffs inhaled every 4 hours p.r.n. for shortness of breath. 8. Ativan 0.5 mg oral twice a day p.r.n. 9. Loratadine 10 mg p.o. daily. 10. Irbesartan 150 mg oral daily. 11. Vitamin A and D one tablet oral daily. DISCHARGE DIET: Low-sodium diet. ACTIVITY: As tolerated. FOLLOWUP INSTRUCTIONS: The patient will need to follow up with Dr. Mario as scheduled by his clinic. The patient will need to follow up with Dr. Bergman within 1 to 2 weeks. cc: MD Zion Galicia,
== END 2018-11-23 12:01 | disposition home or self-care (01) | DRG 309 ==
LOC: ED 19:23 → 3N 11-19 01:43 → SUATTDRO 11-19 01:43 → INTOOBSV 11-19 01:43 → 4N 11-19 01:51 → 3S 11-20 09:33 → 4N 11-21 18:39
PROVIDERS: ATTEND Internal Medicine
CPT/HCPCS: 71010; 71020; 71045; 71046; 71250; 74177; 80048; 80053; 81001; 82150; 82550; 82553; 82805; 83605; 83690; 83735; 83880; 84100; 84439; 84443; 84484; 85025; 85027; 85610; 85730; 87040; 87088; 87275; 87276; 87804; 93005; 93010; 93306; 94640; 94760; 94761; 96365; 96375; 96376; 97162; 97530; 99285; A9270; J0696; J2405; J7030; J7060; Q9967

== ENCOUNTER 2019-03-13 13:29 | Inpatient (IN) ==
[2019-03-13] MEDS ORDERED: CARDIZEM IV ONE (13:43)
[2019-03-13] MEDS ORDERED: CARDIZEM 125 MG/D5W 125 MG/125 ML IVPB IV SCH (13:45)
--- NOTE | 2019-03-13 14:01 | Diag Imaging Result Doc PS360 ---
EXAM: CHEST-1 VIEW 03/13/2019 HISTORY: sob TECHNIQUE: AP portable upright at 1359 COMMENT: There is COPD. The heart size and primary vascularity are within normal limits. Compared to the previous examination of 01/27/2019 there has been no significant change. IMPRESSION: No evidence of acute disease. Electronically signed by Booker Gary 03/13/2019 1:59 PM
[2019-03-13 14:02] LABS: BASO# 0.03 X1000 (0.0-0.2); BASO% 0.4 % (0.0-0.8); EOS# 0.02 X1000 (0.0-0.7); EOS% 0.3 % (0.0-10.0); HEMATOCRIT 44.5 % (37.0-47.0); HEMOGLOBIN 13.8 g/dL (12.0-16.0); LYMPH# 1.68 X1000 (1.2-3.4); MCV 90.3 FL (81-99); MONO# 0.57 X1000 (0.11-0.59); MONO% 7.5 % (1.7-9.3); MPV 9.4 FL (7.4-10.4); NEUT# 5.34 X1000 (1.4-6.5); NEUT% 69.8 % (42.2-75.2); PLT 395 X1000 (130-400); RBC 4.93 XMIL (4.2-5.4); WBC 7.64 X1000 (4.8-10.8)
--- NOTE | 2019-03-13 14:06 | EKG Report ---
Test Performed on : 03/13/2019 1:34:43 PM Test Reason : sob Blood Pressure : / mmHG Vent. Rate : 110 BPM Atrial Rate : 312 BPM P-R Int : 000 ms QRS Dur : 070 ms QT Int : 318 ms P-R-T Axes : 000 079 074 degrees QTc Int : 430 ms Atrial fibrillation. with rapid ventricular response. Abnormal ECG When compared with ECG of 27-JAN-2019 08:02, (Unconfirmed) Atrial fibrillation. has replaced Sinus rhythm. Unconfirmed Result
[2019-03-13 14:21] LABS: AGAP 12; ALB/GLOB RATIO 1.7; ALBUMIN 4.8 g/dL (3.5-5.0); ALKALINE PHOSPHATASE 75 U/L (32-104); BUN 8 mg/dL (8-22); CALCIUM 9.8 mg/dL (8.8-10.2); CHLORIDE 93 mmol/L (98-107); COSMO 272; CREATININE 0.5 mg/dL (0.5-0.9); ESTIMATED GFR > 60; GLUCOSE 132 mg/dL (70-104); GOT 22 U/L (10-30); GPT 18 U/L (10-36); POTASSIUM 3.4 mmol/L (3.5-5.1); SODIUM 136 mmol/L (136-145); TCO2 31 mmol/L (25-35); TOTAL BILIRUBIN 0.17 mg/dL (0.20-1.00); TOTAL PROTEIN 7.6 g/dL (6.3-8.3)
[2019-03-13 14:28] LABS: PROTIME 13.3 Seconds (11.0-16.0); PTT 41.4 Seconds (22.3-41.8)
--- NOTE | 2019-03-13 14:53 | PROVIDER DOCUMENTATION ---
This chart was entered by Lauren Schultz Scribe, acting as scribe for Mau Hernandez MD. HPI-Cardiac General - General Chief Complaint: Palpitations Stated Complaint: PALPATATIONS Time Seen by Provider: 03/13/19 13:41 Source: patient Allergies/Adverse Reactions: Patient Allergies Allergy/AdvReac Type Severity Reaction Status Date / Time benazepril HCl * Allergy Unknown Unknown Verified 03/13/19 13:49 [From Lotrel] codeine Allergy Unknown Unknown Verified 03/13/19 13:49 dexamethasone Allergy Unknown Unknown Verified 03/13/19 13:49 ibandronate sodium Allergy Unknown Unknown Verified 03/13/19 13:49 [From Boniva] nebivolol HCl * Allergy Unknown Unknown Verified 03/13/19 13:49 [From Bystolic] amlodipine besylate * Allergy Unknown Verified 03/13/19 13:49 [From Lotrel] bacitracin [From Polysporin] Allergy Unknown Verified 03/13/19 13:49 polymyxin B sulfate * Allergy Unknown Verified 03/13/19 13:49 [From Polysporin] Home Medications: Home Medication List Medication Instructions Recorded Confirmed Last Taken Type Budesonide/Formoterol Fumarate 2 puff INH BID 10/08/13 03/13/19 03/13/19 History [Symbicort 160-4.5 Mcg Inhaler] Tiotropium [place] Inhaler 1 cap INH DAILY 10/08/13 03/13/19 03/13/19 History [Spiriva] Omeprazole [Prilosec] 40 mg PO DAILY@0700 #0 capsule 04/13/15 03/13/19 03/13/19 Rx Multivitamin with Minerals [Hair, 1 each PO DAILY 01/09/17 03/13/19 03/13/19 History Skin & Nails] Lorazepam [Ativan] 0.5 mg PO BID PRN PRN #0 01/03/18 03/13/19 03/13/19 Rx Irbesartan 150 mg PO DAILY 11/19/18 03/13/19 03/13/19 History Apixaban [Eliquis] 5 mg PO BID #60 tab 11/23/18 03/13/19 03/13/19 Rx Albuterol Sulfate [Proair Hfa] 1 dose INH PRN PRN 01/27/19 03/13/19 03/13/19 History Cholecalciferol (Vitamin D3) 1 tab PO DAILY 01/27/19 03/13/19 03/13/19 History [Vitamin D3] Hydralazine [Apresoline] 1 tab PO BID 01/27/19 03/13/19 03/13/19 History Montelukast [Singulair] 1 tab PO DAILY 01/27/19 03/13/19 03/13/19 History Diltiazem HCl [Cartia Xt] 1 tab PO DAILY 03/13/19 03/13/19 03/13/19 History - History of Present Illness-Cardiac Nature of Presenting Problem: Patient is a 78 year old female who presents with palpitations. States palpitations started yesterday. Report shortness of breath. Denies chest pain and abdominal pain. History of Afib. Quality of Pain: reports: none Severity in ED: mild Onset/Duration: 24 hours ago Timing: still present Context/Activities at Onset: reports: light activity Palpitation Quality: irregular History of arrythmia: reports: A-Fib Associated Symptoms: reports: shortness of breath Similar Symptoms Previously?: Yes Recently Seen Here or By Another Healthcare Provider: Yes Review of Systems - Adult - REVIEW OF SYSTEMS - ADULT Constitutional: reports: no symptoms reported. denies: chills, fever, fatique Eyes: reports: no symptoms reported Ears, Nose, Mouth & Throat: reports: no symptoms reported Cardiovascular: reports: see HPI, irregular heart rate, palpitations. denies: chest pain Respiratory: reports: see HPI, shortness of breath. denies: cough, wheezing Gastrointestinal: reports: no symptoms reported. denies: abdominal pain, nausea, vomiting Genitourinary: reports: no symptoms reported Musculoskeletal: reports: no symptoms reported Integumentary: reports: no symptoms reported Neurological: reports: no symptoms reported Psychiatric: reports: no symptoms reported Endocrine: reports: no symptoms reported Hematologic/Lymphatic: reports: no symptoms reported Allergic/Immunologic: reports: no symptoms reported All Other Systems: Reviewed and Negative Past History - Adult - PAST MEDICAL HISTORY-ADULT Review of Records: reports: Old Records Reviewed, Social history reviewed & non- contributory. Major Childhood Illnesses: reports: denies history Cardiovascular: reports: A-Fib, HTN Respiratory: reports: COPD Gastrointestinal: reports: GERD Obstetrical/Gynecological: reports: denies history Genitourinary: reports: denies history Musculoskeletal: reports: denies history Neurological: reports: headaches/migraines Psychiatric: reports: anxiety Endocrine/Immune: reports: denies history Other Conditions: reports: denies history - PRIOR SURGERIES/PROCEDURES Surgical/Procedure History: reports: hysterectomy, tonsillectomy - IMMUNIZATION STATUS Childhood Immunizations: See Nurse Assessment Flu Vaccine: See Nurse Assessment - FAMILY HISTORY Family History: reviewed, not pertinent - SOCIAL HISTORY Smoking: cigarettes (former) Substance Use: denies Physical Exam-General - PHYSICAL EXAM-ADULT Initial Vital Signs Reviewed: Yes - CONSTITUTIONAL General Appearance: alert, mild distress. negative: lethargic - HEAD, EARS, NOSE, MOUTH & THROAT HENMT: normocephalic/atraumatic, moist mucous membranes. negative: angioedema - RESPIRATORY Respiratory: chest non-tender, lungs clear, normal breath sounds. negative: cr ackles, stridor - CARDIOVASCULAR Cardiovascular: normal peripheral pulses, tachycardia, irregularly irregular. negative: regular rate, rhythm - GASTROINTESTINAL (ABDOMEN) Abdominal Exam: normal bowel sounds, non tender, soft. negative: guarding, rebound - SKIN Integumentary: normal color, normal turgor, warm/dry. negative: cyanosis, erythema, rash - NEUROLOGIC Neurologic: grossly normal. negative: aphasia, facial droop - PSYCHIATRIC Psych/Mental Status: normal mood/affect, oriented x 3. negative: anxious - HEART Score HEART Score: History: Moderately Suspicious HEART Score: ECG: Non-Specific Repolarization Disturbance/LBBB/PM HEART Score: Age: > or = 65 Years HEART Score: Risk Factors for Atherosclerotic Disease: 1 or 2 Risk Factors HEART Score: Troponin: < or = Normal Limit Total HEART Score:: 5 Progress - PLAN OF CARE/RESULTS Progress/Plan/Lab Results: Vital Signs - 8 hr 03/13/19 13:40 Temperature 98.3 F Pulse Rate 130 H Respiratory Rate 25 H Blood Pressure 161/112 O2 Sat by Pulse Oximetry 99 Laboratory Results - last 24 hr 03/13/19 03/13/19 03/13/19 13:50 13:50 13:50 WBC 7.64 RBC 4.93 Hgb 13.8 Hct 44.5 MCV 90.3 MCH 28.0 MCHC 31.0 L RDW Std Deviation 13.0 Plt Count 395 MPV 9.4 Immature Gran % (Auto) 0.0 Neut % (Auto) 69.8 Lymph % (Auto) 22.0 [place] % (Auto) 7.5 Eos % (Auto) 0.3 Baso % (Auto) 0.4 Immature Gran # (Auto) 0.00 Neut # (Auto) 5.34 Lymph # (Auto) 1.68 [place] # (Auto) 0.57 Eos # (Auto) 0.02 Baso # (Auto) 0.03 PT INR PTT (Actin FS) Sodium 136 Potassium 3.4 L Chloride 93 L Carbon Dioxide 31 Anion Gap 12 BUN 8 Creatinine 0.5 Estimated GFR/1.73 m2 > 60 BUN/Creatinine Ratio 16 Glucose 132 H Calculated Osmolality 272 Calcium 9.8 Total Bilirubin 0.17 L AST 22 ALT 18 Alkaline Phosphatase 75 Troponin T Nnf-[id number]-Eqbrtgpbtqv Pept 412 Total Protein 7.6 Albumin 4.8 Globulin 2.8 Albumin/Globulin Ratio 1.7 03/13/19 03/13/19 13:50 13:50 WBC RBC Hgb Hct MCV MCH MCHC RDW Std Deviation Plt Count MPV Immature Gran % (Auto) Neut % (Auto) Lymph % (Auto) [place] % (Auto) Eos % (Auto) Baso % (Auto) Immature Gran # (Auto) Neut # (Auto) Lymph # (Auto) [place] # (Auto) Eos # (Auto) Baso # (Auto) PT 13.3 INR 1.00 PTT (Actin FS) 41.4 Sodium Potassium Chloride Carbon Dioxide Anion Gap BUN Creatinine Estimated GFR/1.73 m2 BUN/Creatinine Ratio Glucose Calculated Osmolality Calcium Total Bilirubin AST ALT Alkaline Phosphatase Troponin T < 0.010 Kit-I-Qqfseptrbry Pept Total Protein Albumin Globulin Albumin/Globulin Ratio Orders Category Date Time Status CHEST-1 VIEW [RAD] Stat Exams 03/13/19 13:43 Completed CBC WITH ELECTRONIC DIFF [HEME] Stat Lab 03/13/19 13:50 Completed COMPREHENSIVE METABOLIC PANEL [CHEM] Stat Lab 03/13/19 13:50 Completed MAGNESIUM [CHEM] Stat Lab 03/13/19 14:49 Ordered PRO B-NATRIURETIC PEPTIDE Stat Lab 03/13/19 13:50 Completed PROTIME WITH INR [COAG] Stat Lab 03/13/19 13:50 Completed PTT [COAG] Stat Lab 03/13/19 13:50 Completed TROPONIN T Stat Lab 03/13/19 13:50 Completed Diltiazem 125 mg/D5w [Cardizem 125 mg/D5w] Med 03/13/19 13:45 Active 125 mg in 125 ml IV As Directed mls/hr Diltiazem [Cardizem] Med 03/13/19 13:43 Discontinued 20 mg IV NOW ONE KCl 20 Meq/Swi 100 ml Now and in 4 Hr Med 03/13/19 15:00 Ordered Potassium Chloride 20 Meq/Swi 20 meq in 100 ml IV Q4H EKG [EKG] Stat Ther 03/13/19 13:43 Draft Result Diagrams: 03/13/19 13:50 03/13/19 13:50 - EKG 1 Time of EKG reading by physician:: 13:34 EKG Read and Signed by:: Mau Hernandez EKG Interpretation (*Must complete 3 of following elements*): Abnormal Rate: 110 Rhythm: atrial fibrillation with rapid ventricular response [place]: normal Comments: abnormal ECG 2 Time of EKG reading by physician:: 14:17 EKG Read and Signed by:: Mau Hernandez EKG Interpretation (*Must complete 3 of following elements*): Abnormal (rhythm - atrial fibrillation with rapid ventricular response with premature ventricular or aberrantly conducted complexes) Rate: 105 [place]: normal Comments: septal infarct, age undetermined - XRAY 1 XRAY Study: Chest Impression: See EMR Report ( EXAM: CHEST-1 VIEW 03/13/2019 HISTORY: sob TECHNIQUE: AP portable upright at 1359 COMMENT: There is COPD. The heart size and primary vascularity are within normal limits. Compared to the previous examination of 01/27/2019 there has been no significant change. IMPRESSION: No evidence of acute disease. Electronically signed by Booker Gary 03/13/2019 1:59 PM 03/13/19 [id number] Interpreting Physician: Booker Gary MD Dictated Date/Time: 03/13/19 8932 cc: Mau Hernandez MD; Zion Bergman DO) - CONSULTS/PCP/HOSPITALIST Notification #1 *Consult/PCP/Hospitalist*: VIVIANE Pike for Hospitalist Time Discussed: 14:49 Reason/Comments: Dr. Hernandez consulted with Glendy about patient Consult Disposition: Will see in ED, Admit Departure - Departure Date of Disposition Decision: 03/13/19 Time of Disposition Decision: 14:52 DIAGNOSIS: SOB (shortness of breath), Afib Disposition: ADMITTED INPATIENT 09 Certified Medical Emergency: Emergent Condition: Fair Referrals and Follow-Ups: Zion Bergman DO [Primary Care Provider] - - Critical Care Note This patient required my direct & personal management of CC.: No Attestation - Physician/ MOSES Attestation Patient care was provided by Advanced Practice Provider:: No The physician spent face to face time with patient:: Yes Advanced Practice Provider documentation review:: Supervising physician onsite and consulted in the evaluation and care of this patient. The physician did have a face to face encounter with the patient. This chart was documented by the indicated scribe, (Lauren Schultz Scribe) and accurately reflects the services I performed and decisions made by me, Mau Hernandez MD, as attested by the provider's signature.
[2019-03-13] MEDS ORDERED: NS 1,000 ML IV SCH (15:00)
[2019-03-13] MEDS: POTASSIUM CHLORIDE 20 MEQ/SWI 20 MEQ/100 ML IVPB IV SCH ×2 (15:38→18:14)
[2019-03-13] MEDS ORDERED: ZOFRAN IV PRN (16:04)
[2019-03-13] MEDS ORDERED: ATIVAN PO PRN (16:04)
[2019-03-13] MEDS ORDERED: CARDIZEM PO SCH ×2 (17:00→18:00)
--- NOTE | 2019-03-13 17:24 | HISTORY AND PHYSICAL ---
PRIMARY CARE PROVIDER: Dr. Jacob Bergman. CARDIOLOGY: [facility] Consultant is Dr. Mario. CATECHIST: Dr. Purcell CHIEF COMPLAINT: "Flutters." HISTORY OF PRESENT ILLNESS: Ms Camacho is a 78-year-old female with a past medical history of end-stage COPD, on continuous home O2, atrial fibrillation/ a-flutter, hypertension, anxiety disorder, and GERD, reported to the ED with "flutters" in her chest that started yesterday. She felt that she had been more short of breath than normal. Some associated nausea, however, she has not eaten today, so she is unsure if that is related, but no chest pain, no dizziness, no nausea, vomiting, diarrhea, cough, fever, chills. She reports that the fluttering has now gone away and she is back to her normal breathing. While in the ED she was found to be in atrial fibrillation with RVR. Her rate went from the 130s 140s down to 90s to low 100s. They rechecked an EKG and she was still in atrial fibrillation with RVR, but they held the Cardizem bolus and drip secondary to her lower rate. I spoke with Cardiology. They want me to start her on Cardizem [address] her on PVC in case we need to initiate her on a Cardizem drip. We will go ahead and replenish her potassium. Her magnesium is 1.9 and continue with further management and treatment. PAST MEDICAL HISTORY: 1. Paroxysmal atrial fibrillation, a-flutter. 2. 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 3. Hypertension. 4. Anxiety disorder. 5. Gastroesophageal reflux disease. PAST SURGICAL HISTORY: 1. Tonsillectomy. 2. Hysterectomy. ALLERGIES: To codeine, dexamethasone and benazepril. HOME MEDICATIONS: Cardia XT, Eliquis, Spiriva, Symbicort, Prilosec, multivitamin, ProAir inhaler, Ativan, Claritin, and Irbesartan. FAMILY HISTORY: Positive for coronary artery disease in mother. SOCIAL HISTORY: Former smoker. No alcohol or illicit drug use. Supportive daughter at bedside. REVIEW OF SYSTEMS: Twelve-point review of systems complete and negative except for those mentioned in HPI. PHYSICAL EXAMINATION: VITAL SIGNS: Temperature is 98.3 degrees, heart rate anywhere from 90s to low 100s, respirations 19, blood pressure 172/70, O2 is 100% on nasal cannula. GENERAL: Ms. Camacho is a pleasant 78-year-old female who is lying in the bed in no acute distress. HEENT: Atraumatic, normocephalic. PERRL. NECK: Supple. Trachea midline. CARDIOVASCULAR: Irregularly irregular rhythm. No murmurs, gallops, or rubs noted. RESPIRATORY: Lung sounds with decreased airway throughout all lung denis. ABDOMEN: Soft, nontender, nondistended. Positive bowel sounds 4 quads. EXTREMITIES: Lower extremities no edema, no clubbing, no cyanosis. DIAGNOSTIC DATA: Most recent echo in October 2018 showed an EF of 65%. No valvular abnormalities. Chest x-ray, no evidence of acute disease. There is COPD. EKG initial atrial fibrillation with RVR. Followup with decreased rate, atrial fibrillation with RVR. LABORATORY DATA: White count 7, hemoglobin and hematocrit 13 and 44, platelet count is 395,000. Sodium 136, potassium 3.4, BUN 8, creatinine 0.5. Blood glucose is 132. Troponin was less than 0.010. ASSESSMENT AND PLAN: 1. Atrial fibrillation with rapid ventricular response. She is now better rate controlled. We will place her on Cardizem 60 p.o. t.i.d. I will place her on PVC in case we do have to start a Cardizem drip. We will continue her on her home Eliquis. 2. Hyperkalemia. We will treat and follow and recheck labs in the a.m. 3. 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 We will continue her bronchodilators. 4. Hypertension will continue home medications. 5. Anxiety disorder. We will continue p.r.n. Ativan. 6. Gastroesophageal reflux disease. Continue proton pump inhibitor. 7. Further recommendation to follow physician evaluation, laboratory and diagnostic data. The patient does wish to be a full code. Dictated by VIVIANE Oneil for Nathaniel Castillo MD cc: MD Kev Lcay MD Jeffrey A. Johnson, DO
[2019-03-13] MEDS ORDERED: MAGNESIUM SULFATE 2 GM/S.W.I. 2 GM/50 ML IVPB IV ONE (18:30)
[2019-03-13] MEDS: SYMBICORT 160/4.5 MICROGM INHALER INH SCH (20:14)
[2019-03-13] MEDS: MUCINEX PO SCH (20:34)
[2019-03-13] MEDS: APRESOLINE PO SCH (20:34)
[2019-03-13] MEDS: ELIQUIS PO SCH (20:35)
--- NOTE | 2019-03-13 21:57 | HISTORY AND PHYSICAL ---
ADDENDUM: I have seen and examined Ms. Camacho today who came to the emergency room this morning because of palpitation. Upon presentation, she was found to be in atrial fibrillation with RVR with a rate of about 130. Of note, Ms. Camacho is known to have paroxysmal atrial fibrillation and follows up with Dr. Mario. She is on oral Cardizem and Eliquis for stroke prophylaxis. She is also hypertensive and severe COPD with chronic hypoxemia on home [address] Follows up with Dr. Purcell. Her current vitals shows a blood pressure 164/103 with a pulse of 110, respirations 23, temperature is 98.5 degrees. Currently, Ms. Camacho is resting very comfortably in bed. Her daughter and her son were at the bedside at the time of the encounter. Ms. Camacho does not seem to be in any acute respiratory distress. Her chest has a barrel shape. Air entry was bilaterally reduced. No rhonchi, no wheezing. Cardiovascular seems to be regular rate with occasional extrasystolic beat. Her current rate on the laboratory monitor was 94. Abdomen was soft. Extremities no pedal edema. LABORATORY DATA: I have also reviewed her laboratory data. CBC is unremarkable. Chemistry shows a potassium of 3.4, magnesium 1.9. The potassium has been replaced. We will also replace the magnesium to have a serum level of 2 and above. ASSESSMENT: 1. Paroxysmal atrial fibrillation with rapid ventricular response on presentation which has stabilized. The patient is still on a Cardizem drip. We will plan to continue this overnight and restart her on her oral medications tomorrow morning. Her printed circuit board panels plater, Dr. Mario, has been notified. 2. History of chronic obstructive pulmonary disease, currently not in exacerbation. 3. Chronic hypoxemic respiratory failure on home 2 oxygen. We will continue with oxygen supplement. 4. Hypertension. The patient has been started on her home medication for blood pressure control. I have also reviewed the history and physical that has been dictated by the nurse practitioner. I do agree the plan reflects my opinion that has been discussed with her. Please refer to the details of H and P in the chart. cc: Nathaniel Castillo MD
--- NOTE | 2019-03-13 22:41 | CONSULTATION ---
DATE OF CONSULTATION: 03/13/2019 IMPRESSION: 1. Recurrent atrial flutter with moderate tachycardia and associated palpitations. Patient has spontaneously converted back to sinus rhythm. Patient had previous atrial flutter during hospitalization in October of this year and at that time was hospitalized for chronic obstructive pulmonary disease exacerbation. 2. Severe chronic obstructive pulmonary disease requiring chronic home oxygen. 3. Hypertension. RECOMMENDATIONS: 1. Increase diltiazem dose to try to improve rate control. 2. Continue anticoagulation with Eliquis. 3. For now, continue to manage with rate control and anticoagulation. 4. If patient maintains sinus rhythm overnight it would be reasonable for her to go home tomorrow morning. HISTORY: This 78-year-old white female with past history of hypertension, previous atrial flutter, and severe COPD was admitted with symptoms of flushing and palpitations. She was found to be in atrial flutter with moderate tachycardia. She is admitted to telemetry and since admission has spontaneously converted back to sinus rhythm. She rates developing palpitations with flushing, but no other chest symptoms. There has been no lightheadedness or syncope. She was hospitalized for similar symptoms back in October of this year and was started on diltiazem for rate control along with Eliquis for anticoagulation. There is no history of chest pain or angina. There has been no history of coronary disease. PAST MEDICAL HISTORY: 1. Severe chronic obstructive pulmonary disease requiring chronic home oxygen. 2. Hypertension. 3. Previous atrial flutter October 2018. 4. Status post tonsillectomy and previous hysterectomy. ALLERGIES: She is allergic or intolerant to codeine, dexamethasone, and benazepril. MEDICATIONS PRIOR TO ADMISSION: As listed. SOCIAL HISTORY: She has history of previous cigarette smoking for many years, but discontinued this. She does not use alcohol. FAMILY HISTORY: Negative for premature coronary disease. REVIEW OF SYSTEMS: Pulmonary: Noteworthy for chronic dyspnea which seems pretty stable. There has been no orthopnea nor recent cough. Gastrointestinal: Negative. Constitutional: Negative. Remainder of the review of systems negative/noncontributory with 14 total systems reviewed. PHYSICAL EXAMINATION: General: This is a pleasant, older white female in no distress. Vital signs: Blood pressure 150/94. Heart rate 100 with ECG monitor presently showing sinus rhythm. Oxygen saturation 98% on nasal cannula oxygen. HEENT: Extraocular movements intact. Mucous membranes are moist. Neck: Supple without jugular venous distention. There are no carotid bruits. Chest: Clear to auscultation bilaterally. Cardiac Exam: Reveals a regular rate and rhythm without appreciable murmur or gallop. Abdomen: Soft. Bowel sounds are normal. Extremities: Without edema. Neurologic: Reveals her to be alert and fully oriented. Speech is fluent. She moves all 4 extremities equally well. Skin: Warm and dry. Psychiatric: Reveals mood to be appropriate 12 lead EKG demonstrates atrial flutter with heart rate of 110 beats per minute. Telemetry monitoring presently shows sinus rhythm. LABORATORY DATA: Includes a white blood cell count 7.64, hematocrit 44.5, hemoglobin 13.8, platelet count 395,000. Sodium 136, potassium 3.4, chloride 93, carbon dioxide 31, BUN 8, creatinine 0.5, glucose 132. Troponin T less than 0.01. cc: Kev Mario MD
[2019-03-14 06:23] LABS: BASO# 0.02 X1000 (0.0-0.2); BASO% 0.3 % (0.0-0.8); EOS# 0.05 X1000 (0.0-0.7); EOS% 0.8 % (0.0-10.0); HEMATOCRIT 39.3 % (37.0-47.0); HEMOGLOBIN 11.7 g/dL (12.0-16.0); IMM GRAN# 0.02 X1000 (0.0-0.04); IMM GRAN% 0.3 % (0.0-0.5); LYMPH# 1.88 X1000 (1.2-3.4); LYMPH% 31.1 % (20.5-51.1); MCH 27.5 PG (27-31); MCHC 29.8 g/dL (33-37); MCV 92.5 FL (81-99); MONO# 0.55 X1000 (0.11-0.59); MONO% 9.1 % (1.7-9.3); MPV 9.6 FL (7.4-10.4); NEUT# 3.53 X1000 (1.4-6.5); NEUT% 58.4 % (42.2-75.2); PLT 358 X1000 (130-400); RBC 4.25 XMIL (4.2-5.4); RDW 13.1 % (11.5-14.5); WBC 6.05 X1000 (4.8-10.8)
[2019-03-14 06:34] LABS: AGAP 9; ALB/GLOB RATIO 1.7; ALKALINE PHOSPHATASE 61 U/L (32-104); BUN 6 mg/dL (8-22); CHLORIDE 102 mmol/L (98-107); COSMO 279; CREATININE 0.5 mg/dL (0.5-0.9); ESTIMATED GFR > 60; GLUCOSE 100 mg/dL (70-104); GOT 18 U/L (10-30); GPT 15 U/L (10-36); MAGNESIUM 2.3 mg/dL (1.5-2.7); POTASSIUM 4.4 mmol/L (3.5-5.1); SODIUM 141 mmol/L (136-145); TCO2 30 mmol/L (25-35); TOTAL BILIRUBIN 0.23 mg/dL (0.20-1.00); TOTAL PROTEIN 6.3 g/dL (6.3-8.3)
--- NOTE | 2019-03-14 06:46 | Diag Imaging Result Doc PS360 ---
CHEST-PORTABLE - 03/14/2019 INDICATION: fu COMPARISON: 03/13/2019 FINDINGS: There is no change from prior. IMPRESSION: No change from prior. Electronically signed by Josr Nicholas 03/14/2019 6:44 AM
[2019-03-14] MEDS ORDERED: PRILOSEC PO SCH (07:00)
[2019-03-14 07:26] VITALS: BP 157/67
[2019-03-14] MEDS ORDERED: SPIRIVA INH SCH (07:30)
[2019-03-14] MEDS: SYMBICORT 160/4.5 MICROGM INHALER INH SCH (07:53)
[2019-03-14] MEDS: ELIQUIS PO SCH (08:12)
[2019-03-14] MEDS: MUCINEX PO SCH (08:12)
[2019-03-14] MEDS: APRESOLINE PO SCH (08:12)
[2019-03-14] MEDS ORDERED: SINGULAIR PO SCH (09:00)
[2019-03-14] MEDS ORDERED: VITAMIN D PO SCH (09:00)
[2019-03-14] MEDS ORDERED: CARDIZEM CD PO SCH (09:00)
[2019-03-14] MEDS ORDERED: AVAPRO PO SCH (09:00)
--- NOTE | 2019-03-14 10:05 | EKG Report ---
Test Performed on : 03/14/2019 09:22:17 AM Test Reason : Afib Blood Pressure : / mmHG Vent. Rate : 080 BPM Atrial Rate : 080 BPM P-R Int : 152 ms QRS Dur : 054 ms QT Int : 366 ms P-R-T Axes : 087 078 070 degrees QTc Int : 422 ms Normal sinus rhythm. Septal infarct , age undetermined Abnormal ECG When compared with ECG of 13-MAR-2019 13:34, (Unconfirmed) Sinus rhythm. has replaced Atrial fibrillation. Confirmed by Rigo TAYLOR, Jaylen He ([id number]) on 03/14/2019 3:42:53 PM
[2019-03-14] MEDS ORDERED: FLU VACCINE IM ONE (10:08)
--- NOTE | 2019-03-15 07:44 | DISCHARGE SUMMARY ---
ADMISSION DATE: 03/13/2019 DISCHARGE DATE: 03/14/2019 DISPOSITION: Home. FOLLOWUP: 1. Dr. Zion Bergman. 2. Dr. Mario. CONSULTATIONS DURING THIS ADMISSION: Cardiology was consulted. Patient was seen by Dr. Mario. INVASIVE PROCEDURES DONE DURING THIS ADMISSION: None. IMAGING STUDIES OF SIGNIFICANCE: A chest x-ray initially showed COPD, no evidence of acute disease. A repeat chest x-ray this morning showed no change from prior. ADMISSION DIAGNOSES: 1. Atrial fibrillation with rapid ventricular response. 2. Hypokalemia. 3. End-stage chronic obstructive pulmonary disease on home 2 oxygen. 4. Anxiety disorder. DIAGNOSES AT THE TIME OF DISCHARGE: 1. Paroxysmal atrial fibrillation with rapid ventricular response on presentation. 2. History of chronic obstructive pulmonary disease, currently not in exacerbation. 3. Chronic hypoxemic respiratory failure on home 2 oxygen. 4. Hypertension. DISCHARGE MEDICATIONS: 1. Spiriva inhaler. 2. Symbicort. 3. Omeprazole 40 mg p.o. daily. 4. Lorazepam 0.5 b.i.d. 5. Irbesartan 150 daily. 6. Eliquis 5 mg b.i.d. 7. Cholecalciferol. 8. Hydralazine 10 mg b.i.d. 9. Montelukast. 10. Cardizem 240 p.o. daily. PRESENTING COMPLAINT: Heart flutter. HISTORY OF PRESENTING COMPLAINT: Ms. Camacho is a 78-year-old female who is known to have end-stage COPD, chronic hypoxemic respiratory failure on home 2 oxygen, also atrial fibrillation on Eliquis for stroke prophylaxis. She came to the emergency department because her heart was fluttering. She was found to be in atrial fibrillation RVR with a rate of over 140. Ms. Camacho was subsequently admitted to the cardiac floor for medical management. HOSPITAL COURSE: Ms. Camacho was admitted to [facility] under telemonitoring. She was started on Cardizem drip, which only lasted for a very few hours. The patient got converted to sinus and good rate late in the evening. She was started on a higher dose of p.o. Cardizem and started back on her home medications. This morning Ms. Camacho refers to be feeling a lot better. She continues to be in sinus and she denied any complaint. Her current vitals, blood pressure is 157/67, pulse of 76, respirations 20, temperature is 98 degrees. She is in stable condition for discharge. A repeat EKG this morning shows a sinus rhythm with a rate of [address]-segment abnormality or T-wave abnormality. Ms. Camacho is, therefore, deemed clinically stable for discharge to follow up with Dr. Zion Bergman and Dr. Mario. TIME SPENT: For discharge is 36 minutes. All the discharge instructions discussed with Ms. Camacho and she voiced understanding. cc: MD Kev Lacy MD Jeffrey A. Johnson,
== END 2019-03-14 12:23 | disposition home or self-care (01) | DRG 309 ==
LOC: SUPCPDRO → ED 13:29 → 2N 15:35
PROVIDERS: ATTEND Internal Medicine

== ENCOUNTER 2019-03-31 18:33 | Inpatient (IN) ==
[2019-03-31] MEDS ORDERED: CARDIZEM IV ONE ×4 (18:57→22:15)
--- NOTE | 2019-03-31 19:00 | PROVIDER DOCUMENTATION ---
HPI-General Adult - General Chief Complaint: Palpitations Stated Complaint: HIGH HEART RATE Time Seen by Provider: 03/31/19 18:49 Source: patient, family (daughter at bedside) Allergies/Adverse Reactions: Patient Allergies Allergy/AdvReac Type Severity Reaction Status Date / Time benazepril HCl * Allergy Unknown Unknown Verified 03/13/19 13:49 [From Lotrel] codeine Allergy Unknown Unknown Verified 03/13/19 13:49 ibandronate sodium Allergy Unknown Unknown Verified 03/13/19 13:49 [From Boniva] nebivolol HCl * Allergy Unknown Unknown Verified 03/13/19 13:49 [From Bystolic] amlodipine besylate * Allergy Unknown Verified 03/13/19 13:49 [From Lotrel] bacitracin [From Polysporin] Allergy Unknown Verified 03/13/19 13:49 polymyxin B sulfate * Allergy Unknown Verified 03/13/19 13:49 [From Polysporin] Home Medications: Home Medication List Medication Instructions Recorded Confirmed Last Taken Type Tiotropium [place] Inhaler 1 cap INH DAILY 10/08/13 03/31/19 03/30/19 09:00 History [Spiriva] Omeprazole [Prilosec] 40 mg PO DAILY@0700 #0 capsule 04/13/15 03/31/19 03/31/19 09:00 Rx Multivitamin with Minerals [Hair, 1 each PO DAILY 01/09/17 03/31/19 03/31/19 09:00 History Skin & Nails] Lorazepam [Ativan] 0.5 mg PO BID PRN PRN #0 01/03/18 03/31/19 03/31/19 16:00 Rx Irbesartan 150 mg PO DAILY 11/19/18 03/31/19 03/31/19 09:00 History Apixaban [Eliquis] 5 mg PO BID #60 tab 11/23/18 03/31/19 03/31/19 09:00 Rx Cholecalciferol (Vitamin D3) 1 tab PO DAILY 01/27/19 03/31/19 03/31/19 09:00 His tory [Vitamin D3] Hydralazine [Apresoline] 1 tab PO TID 01/27/19 03/31/19 03/31/19 18:00 History Montelukast [Singulair] 1 tab PO DAILY 01/27/19 03/31/19 03/31/19 09:00 History Albuterol Sulfate [Proair Hfa] 2 puff INH PRN PRN 03/31/19 03/31/19 03/30/19 09:00 History Budesonide/Formoterol Fumarate 2 puff INH BID 03/31/19 03/31/19 03/30/19 18:00 History [Symbicort 160-4.5 Mcg Inhaler] Diltiazem HCl [Cartia Xt] 240 mg PO QAM 03/31/19 03/31/19 03/31/19 09:00 History Multivitamins/Minerals [Centrum 1 tab PO DAILY 03/31/19 03/31/19 03/31/19 17:00 History Silver] - History of Present Illness -Gen Adult Nature of Presenting Problems: 78 YO F pmh for COPD on 4L cont o2 presents with rapid heart rate since this morning. pt states she has had URI symptoms x 3 days. Went to urgent care and was given treatment. On today, she presents with rapid HR. She denies CP. Some associated fever and SOB. She was seen here last month for Afib with RVR and states that her medication doses were increased, however she has not been able t o fill the new rx, so she has continued taking the old one at the previous dose. Location of Pain/Injury: reports: none Quality of Pain: reports: none Onset/Duration: reports: this morning Timing: reports: still present, constant Associated Symptoms: reports: cough. denies: diarrhea Similar Symptoms Previously?: Yes Recently seen or treated by another doctor?: Yes (seen here 2 weeks ago, tx for afib with rvr) Review of Systems - Adult - REVIEW OF SYSTEMS - ADULT Constitutional: denies: chills, fever Eyes: reports: no symptoms reported Ears, Nose, Mouth & Throat: reports: see HPI. denies: ear pain Cardiovascular: reports: see HPI, palpitations Respiratory: reports: cough, shortness of breath Gastrointestinal: reports: no symptoms reported Genitourinary: reports: no symptoms reported Musculoskeletal: reports: no symptoms reported Integumentary: reports: no symptoms reported Neurological: reports: no symptoms reported Psychiatric: reports: no symptoms reported Past History - Adult - PAST MEDICAL HISTORY-ADULT Review of Records: reports: Old Records Reviewed Major Childhood Illnesses: reports: denies history Cardiovascular: reports: denies history, HTN Respiratory: reports: denies history, COPD Gastrointestinal: reports: denies history, GERD Obstetrical/Gynecological: reports: denies history Genitourinary: reports: denies history Musculoskeletal: reports: denies history Neurological: reports: denies history, headaches/migraines Endocrine/Immune: reports: denies history Other Conditions: reports: denies history - PRIOR SURGERIES/PROCEDURES Surgical/Procedure History: reports: hysterectomy, tonsillectomy - IMMUNIZATION STATUS Childhood Immunizations: See Nurse Assessment Flu Vaccine: See Nurse Assessment - FAMILY HISTORY Family History: reviewed, not pertinent - SOCIAL HISTORY Smoking: quit greater than 1 year Substance Use: denies Living Situation: family Physical Exam-General - PHYSICAL EXAM-ADULT Initial Vital Signs Reviewed: Yes - CONSTITUTIONAL General Appearance: alert, mild distress (respiratory), thin - EYES Eyes: PERRL/EOMI - HEAD, EARS, NOSE, MOUTH & THROAT HENMT: normocephalic/atraumatic - NECK Neck: supple - RESPIRATORY Respiratory: lungs clear, no pleuratic chest pain, respiratory distress. negative: crackles, rales, rhonchi - CARDIOVASCULAR Cardiovascular: tachycardia - GASTROINTESTINAL (ABDOMEN) Abdominal Exam: non tender, soft - SKIN Integumentary: normal turgor, warm/dry, abrasion(s) - NEUROLOGIC Neurologic: grossly normal - PSYCHIATRIC Psych/Mental Status: normal mood/affect, oriented x 3 Progress - PLAN OF CARE/RESULTS Progress/Plan/Lab Results: Vital Signs - 8 hr 03/31/19 18:37 Temperature 98.0 F Pulse Rate 144 H Respiratory Rate 26 H Blood Pressure 154/68 O2 Sat by Pulse Oximetry 98 Orders Category Date Time Status Cardiac Monitoring DIRECTED Care 03/31/19 18:55 Ordered IV Insertion ORDERED Care 03/31/19 18:55 Ordered Notify MD of + Sepsis Screen NOW Care 03/31/19 18:55 Ordered Notify Physician As Ordered Care 03/31/19 18:55 Ordered cxr [CHEST-2 VIEWS] [RAD] Stat Exams 03/31/19 18:56 Ordered BLOOD CULTURE [BLDCUL] Stat Lab 03/31/19 18:55 Uncollected CBC WITH DIFF [HEME] Stat Lab 03/31/19 18:55 Uncollected CK PROFILE [SP CHEM] Stat Lab 03/31/19 18:55 Uncollected COMPREHENSIVE METABOLIC PANEL [CHEM] Stat Lab 03/31/19 18:55 Uncollected LACTATE, PLASMA [CHEM] Q3H Lab 03/31/19 19:00 Uncollected LACTATE, PLASMA [CHEM] Q3H Lab 03/31/19 22:00 Uncollected LACTATE, PLASMA [CHEM] Q3H Lab 04/01/19 01:00 Uncollected PROTIME WITH INR [COAG] Stat Lab 03/31/19 18:55 Uncollected PTT [COAG] Stat Lab 03/31/19 18:55 Uncollected TROPONIN T Stat Lab 03/31/19 18:55 Uncollected URINALYSIS W/POSS RFLX CULT [URINALYSIS] Stat Lab 03/31/19 18:55 Uncollected Diltiazem [Cardizem] Med 03/31/19 18:57 Once 20 mg IV NOW ONE Oxygen Device Stat Oth 03/31/19 18:55 Ordered Result Diagrams: 03/31/19 18:56 03/31/19 18:56 - REASSESSMENT Reassessment #1 Time Reassessed: 21:48 Status: improving (pt has recieved 25mg of cardizem, pt keeps getting elevated HR with every minimal motion. Will most likely have to place on drip. plan for admission. UA pending.) - EKG 1 Time of EKG reading by physician:: 19:50 EKG Read and Signed by:: Deedee Dowling EKG Interpretation (*Must complete 3 of following elements*): Abnormal Rate: 142 Rhythm: sinus tachycardia [place]: normal QRS: normal [place] Interval: shortened ST Wave: non-specific ST changes Prior EKG Comparison: changes noted (03/13/19) 2 Time of EKG reading by physician:: 22:04 EKG Read and Signed by:: Deedee Dowling EKG Interpretation (*Must complete 3 of following elements*): Abnormal Rate: 82 Rhythm: Afib [place]: normal ST Wave: non-specific ST changes (septal infarct, but seen on previous EKGs, changed from most recent EKG) Prior EKG Comparison: changes noted - CONSULTS/PCP/HOSPITALIST Notification #1 *Consult/PCP/Hospitalist*: Dr. Woodall Time Discussed: 22:06 Consult Disposition: Will see in ED Departure - Departure Date of Disposition Decision: 03/31/19 Time of Disposition Decision: 20:22 DIAGNOSIS: Atrial fibrillation with RVR, Hypoxia, COPD exacerbation Disposition: ADMITTED INPATIENT 09 Certified Medical Emergency: Emergent Condition: Stable Referrals and Follow-Ups: Zion Bergman DO [Primary Care Provider] - - Critical Care Note This patient required my direct & personal management of CC.: No Attestation - Physician/ MOSES Attestation The physician spent face to face time with patient:: Yes Advanced Practice Provider documentation review:: Supervising physician onsite and consulted in the evaluation and care of this patient. The physician did have a face to face encounter with the patient.
[2019-03-31 19:16] LABS: HEMATOCRIT 41.7 % (37.0-47.0); HEMOGLOBIN 13.3 g/dL (12.0-16.0); LYMPH# 0.76 X1000 (1.2-3.4); MCH 28.9 PG (27-31); MCHC 31.9 g/dL (33-37); MCV 90.5 FL (81-99); MONO# 0.73 X1000 (0.11-0.59); MONO% 7.6 % (1.7-9.3); MPV 9.6 FL (7.4-10.4); NEUT# 8.06 X1000 (1.4-6.5); NEUT% 84.4 % (42.2-75.2); PLT 412 X1000 (130-400); RBC 4.61 XMIL (4.2-5.4); RDW 12.9 % (11.5-14.5); WBC 9.55 X1000 (4.8-10.8)
[2019-03-31 19:22] LABS: INR 0.95; PROTIME 12.8 Seconds (11.0-16.0)
[2019-03-31 19:23] LABS: PTT 35.6 Seconds (22.3-41.8)
--- NOTE | 2019-03-31 19:31 | Diag Imaging Result Doc PS360 ---
EXAM: CHEST-2 VIEWS HISTORY: cough, SOB TECHNIQUE: Two views COMPARISON: 03/14/2019 FINDINGS: The lungs are hyperexpanded. The heart is not enlarged. The vessels are not distended. There are no infiltrates. No pleural effusions. IMPRESSION: Emphysema. No pneumonia. Electronically signed by Christian Encarnacion 03/31/2019 7:28 PM
[2019-03-31 19:36] LABS: AGAP 16; ALB/GLOB RATIO 2.2; ALKALINE PHOSPHATASE 80 U/L (32-104); BUN 12 mg/dL (8-22); CALCIUM 10.3 mg/dL (8.8-10.2); CHLORIDE 97 mmol/L (98-107); CK PROFILE 145 U/L (24-173); COSMO 284; CREATININE 0.6 mg/dL (0.5-0.9); ESTIMATED GFR > 60; GLUCOSE 148 mg/dL (70-104); GOT 21 U/L (10-30); GPT 20 U/L (10-36); POTASSIUM 3.9 mmol/L (3.5-5.1); SODIUM 141 mmol/L (136-145); TCO2 28 mmol/L (25-35); TOTAL BILIRUBIN 0.19 mg/dL (0.20-1.00); TOTAL PROTEIN 7.3 g/dL (6.3-8.3)
--- NOTE | 2019-03-31 21:04 | EKG Report ---
Test Performed on : 03/31/2019 7:47:04 PM Test Reason : CP Blood Pressure : / mmHG Vent. Rate : 142 BPM Atrial Rate : 142 BPM P-R Int : 084 ms QRS Dur : 084 ms QT Int : 308 ms P-R-T Axes : 094 075 050 degrees QTc Int : 473 ms Sinus tachycardia. with short VA Possible Anterior infarct (cited on or before 14-MAR-2019) Marked ST abnormality, possible inferior subendocardial injury Abnormal ECG When compared with ECG of 14-MAR-2019 09:22, VA interval has decreased Vent. rate has increased BY [address] now depressed in Inferior leads ST now depressed in Anterior leads Unconfirmed Result
[2019-03-31] MEDS ORDERED: PREDNISONE PO ONE (21:13)
[2019-03-31 22:21] LABS: BILIRUBIN URINE NEGATIVE (NEGATIVE); BLOOD URINE NEGATIVE (NEGATIVE); COLOR YELLOW; GLUCOSE URINE NEGATIVE (NEGATIVE); KETONE URINE NEGATIVE (NEGATIVE); LEUKOCYTES URINE NEGATIVE (NEGATIVE); NITRITE URINE NEGATIVE (NEGATIVE); PROTEIN URINE 100 mg/dL (NEGATIVE); SP GRAVITY URINE 1.023; TURBIDITY URINE CLEAR (CLEAR); URINE SOURCE CLEAN CATCH; UROBILINOGEN URINE NORMAL (NORMAL)
[2019-03-31] MEDS ORDERED: CARDIZEM IV SCH (22:22)
[2019-03-31] MEDS ORDERED: NS IV SCH (22:22)
[2019-03-31 22:24] LABS: UR EPITHELIAL CELLS <10 /HPF (<10); URINE BACTERIA NEGATIVE /HPF; URINE RBC TNTC /HPF (<10); URINE WBC <10 /HPF (<10)
[2019-03-31] MEDS ORDERED: CARDIZEM 100 MG/NS 100 MG/100 ML IVPB IV SCH (22:30)
[2019-03-31] MEDS ORDERED: ATROVENT NEB INH ONE (22:32)
[2019-03-31] MEDS ORDERED: XOPENEX NEB INH ONE (22:32)
[2019-03-31] MEDS ORDERED: NS NEB INH SCH (22:45)
--- NOTE | 2019-03-31 23:08 | HISTORY AND PHYSICAL ---
ADDENDUM: The patient has come in complaining of sinus congestion and rhinorrhea for the last 3 to 4 days. Was seen in the urgent care I believe yesterday, given some steroids and antibiotic medications, sent home on Zithromax. Developed shortness of breath which did not improve with steroids and Zithromax yesterday. In the ER, her heart rate went up to 120s to 140 range and was given a total of 30 mg of IV push Cardizem. With each movement, the patient's heart rate still goes up in the 120-130 range and she is being admitted for regulation of her rate. Apparently there was some mixup in her home medications. Her insurance did not approve the one that was prescribed when she was discharged recently. Patient exam was notable for decreased air entry with a few scattered wheezes. She has mild acute on chronic respiratory symptoms with using accessory muscles. She will also be admitted for not only rate control but management of COPD exacerbations with use of Atrovent as opposed to albuterol as not to aggravate further tachycardia and maybe a short course of moderate dose steroids, i.e., prednisone 40 mg daily. cc: Wes Woodall MD
--- NOTE | 2019-04-01 00:14 | EKG Report ---
Test Performed on : 04/01/2019 00:14:19 AM Test Reason : Converted from Atria Fib to Sinus Tach Blood Pressure : / mmHG Vent. Rate : 098 BPM Atrial Rate : 098 BPM P-R Int : 138 ms QRS Dur : 066 ms QT Int : 332 ms P-R-T Axes : 080 067 063 degrees QTc Int : 423 ms Normal sinus rhythm. Normal ECG When compared with ECG of 31-MAR-2019 22:58, (Unconfirmed) Sinus rhythm. has replaced Atrial fibrillation. Criteria for Septal infarct are no longer present Unconfirmed Result
--- NOTE | 2019-04-01 00:20 | EKG Report ---
Test Performed on : 03/31/2019 10:58:50 PM Test Reason : a-fib/copd Blood Pressure : / mmHG Vent. Rate : 082 BPM Atrial Rate : 394 BPM P-R Int : 000 ms QRS Dur : 060 ms QT Int : 340 ms P-R-T Axes : 000 077 070 degrees QTc Int : 397 ms Atrial fibrillation. Septal infarct (cited on or before 14-MAR-2019) Abnormal ECG When compared with ECG of 31-MAR-2019 19:47, (Unconfirmed) Atrial fibrillation. has replaced Sinus rhythm. Vent. rate has decreased BY 60 BPM QRS duration has decreased Questionable change in initial forces of Septal leads ST no longer depressed in Inferior leads ST no longer depressed in Anterolateral leads Unconfirmed Result
[2019-04-01] MEDS: COLACE PO SCH ×4 (01:20→21:41)
[2019-04-01] MEDS ORDERED: NS NEB INH SCH (05:30)
[2019-04-01 06:07] LABS: HEMATOCRIT 37.2 % (37.0-47.0); HEMOGLOBIN 11.5 g/dL (12.0-16.0); LYMPH# 0.47 X1000 (1.2-3.4); LYMPH% 7.3 % (20.5-51.1); MCH 28.5 PG (27-31); MCHC 30.9 g/dL (33-37); MCV 92.3 FL (81-99); MONO# 0.11 X1000 (0.11-0.59); MONO% 1.7 % (1.7-9.3); MPV 9.7 FL (7.4-10.4); NEUT# 5.88 X1000 (1.4-6.5); PLT 378 X1000 (130-400); RBC 4.03 XMIL (4.2-5.4); WBC 6.46 X1000 (4.8-10.8)
[2019-04-01] MEDS: PRILOSEC PO SCH (06:17)
[2019-04-01 06:26] LABS: AGAP 12; BUN 9 mg/dL (8-22); CALCIUM 9.4 mg/dL (8.8-10.2); CHLORIDE 96 mmol/L (98-107); CK PROFILE 122 U/L (24-173); COSMO 278; CREATININE 0.6 mg/dL (0.5-0.9); ESTIMATED GFR > 60; GLUCOSE 137 mg/dL (70-104); POTASSIUM 4.4 mmol/L (3.5-5.1); SODIUM 139 mmol/L (136-145); TCO2 31 mmol/L (25-35)
--- NOTE | 2019-04-01 06:36 | HISTORY AND PHYSICAL ---
PRIMARY CARE PROVIDER: Dr. Zion Bergman EASEMENT WORKER: Dr. Mario. DIRECTOR OF COMPLIANCE: Dr. Purcell. CHIEF COMPLAINT: Elevated heart rate and shortness of breath. HISTORY OF PRESENT ILLNESS: Ms. Camacho is a 78-year-old female with a past medical history of end-stage COPD on continuous home O2 at 4 L. She also has a history of atrial fibrillation/atrial flutter on anticoagulation with Eliquis. She also has a history of hypertension, anxiety, and gastroesophageal reflux disease. The patient was recently admitted, and discharged from our facility for atrial fibrillation with rapid ventricular response. They did make an adjustment to her heart rate control medicine. She was previously on Cardia XT and they did switch her to Cardizem CD 240 mg daily upon discharge. The patient states that unfortunately her insurance would not approve her to get the Cardizem CD filled because she had recently had the Cardia XT prescription filled. The patient reports that she still did continue to take her previous heart rate control medicine. She denies any palpitations or chest pain. She just reported that her heart rate has been elevated. The patient states that over the past 3 days now she has had worsening upper respiratory symptoms with associated symptoms of worsening cough, some intermittent low-grade fever, sinus congestion, rhinorrhea and shortness of breath. The patient states her shortness of breath became much worse today. The patient was tachypneic and slightly still dyspneic upon my examination though was able to speak in full sentences. She did have expiratory wheezes noted throughout the lung denis. She did have some slight accessory muscle use as well. Upon evaluation in the ER, she was noted to have elevated heart rate that was in the 140s. EKG did show atrial fibrillation. They did attempt to give her three separate doses, which ended up being a total of 35 mg of Cardizem IV push though her heart rate still remained elevated. We did go ahead and order her Cardizem continuous IV infusion, though just prior to the nurses going to hang it, the patient did look as though she converted to a sinus rhythm on the bedside monitor. We did do an EKG, which confirmed this. The patient has converted back to normal sinus rhythm. Given this, we will hold off on the IV infusion at this time. We will go ahead and order her to have a Cardizem CD 240 mg to be started in the morning. She will be placed on PVC unit for close monitoring. REVIEW OF SYSTEMS: A 14 point review of systems was conducted with the patient, and all were negative except for the pertinent positives mentioned above in HPI. PAST MEDICAL HISTORY: 1. History of paroxysmal atrial fibrillation/atrial flutter on chronic anticoagulation with Eliquis. 2. End-stage chronic obstructive pulmonary disease on home oxygen per nasal cannula at 4 L. 3. Hypertension. 4. Anxiety disorder. 5. Gastroesophageal reflux disease. PAST SURGICAL HISTORY: 1. Tonsillectomy. 2. Hysterectomy. SOCIAL HISTORY: The patient is a former smoker. She did smoke 1 pack per day for 45 years, though quit smoking in 2001. She has no known history of alcohol or illicit drug use. The patient does live at home alone though does have a daughter who does check on her regularly, and helps take care of her. Her daughter Tonya is actually an employee here in our lab. FAMILY HISTORY: Positive for her mother having a history of coronary artery disease, COPD and diabetes mellitus. She at age 83. Her father had a history of kidney disease, and at age 59. She has 3 brothers who all have heart disease. She has one sister who had lung cancer. She had another sister who had COPD. She had another sister who had heart disease and did have to have pacemaker placed. ALLERGIES: Patient has allergies to codeine, Dextro, [*]and benazepril. HOME MEDICATIONS: 1. ProAir HFA inhaler 2 puffs inhaled p.r.n. as directed. 2. Eliquis 5 mg p.o. b.i.d. 3. Symbicort 160/4.5 mcg inhaler 2 puffs inhaled b.i.d. 4. Vitamin D3 2000 unit tablet p.o. daily. 5. Cardia XT 240 mg p.o. every morning. 6. Apresoline 10 mg p.o. t.i.d. 7. Irbesartan 150 mg p.o. daily. 8. Ativan 0.5 mg p.o. b.i.d. p.r.n. for anxiety. 9. Singulair 10 mg p.o. daily. 10. Multivitamin with minerals 1 tablet p.o. daily. 11. Omeprazole 40 mg p.o. daily. 12. Spiriva 18 mcg per capsule. She is instructed to take 1 capsule which will be 2 puffs inhaled daily. DIAGNOSTIC DATA/LABORATORY RESULTS: White blood cell count is 9550, hemoglobin 13.3, hematocrit 41.7, and platelet count is 412,000. PT 12.8, INR 0.95, PTT 35.6. Sodium 141, potassium 3.9, chloride 97, serum bicarb 28, BUN 12, creatinine 0.6. GFR greater than 60. Glucose 148, calcium 10.3, magnesium is 2. Liver function tests are within normal limits. Troponin less than 0.01. Urinalysis was obtained via clean catch, and was positive for protein and tenderness to count red blood cells. It was negative for glucose, ketones, blood, nitrites, leukocytes, white blood cells, or bacteria. EKG showed atrial fibrillation at a rate of 142 with QTc of 473. As previously mentioned, the patient ultimately convert to normal sinus rhythm that was in the 80s to 90s. Chest x-ray shows the lungs were hyperexpanded though the vessels were not distended, there were no infiltrates or pleural effusions noted. There was emphysema noted though. PHYSICAL EXAMINATION: VITAL SIGNS: Temperature 98 degrees, heart rate 89, respirations 17, blood pressure 144/87, oxygen saturation is 98% on nasal cannula at 4 L. GENERAL: Ms. Camacho is a very pleasant 78-year-old female she was resting on the ER stretcher. She was awake, alert, and able to answer questions appropriately. HEENT: Head is atraumatic, normocephalic. Pupils are equal, round, reactive to light. They were 3 mm bilaterally and brisk. Oral mucosa was moist. Oropharynx was clear except for she did have some drainage noted at the posterior pharynx. NECK: Supple. Trachea midline. CARDIOVASCULAR: Patient has S1-S2 present. No murmurs, gallops, rubs appreciated with a regular rate and rhythm at this time. Prior to this though, the patient did have an elevated heart rate in the 140s. It was irregularly irregular, though ultimately did convert to a sinus rhythm during my examination. PULMONARY: Patient has symmetrical chest expansion bilaterally. Lung sounds in bilateral full denis did have expiratory wheezing noted. The patient was still a little dyspneic. She did have some mild accessory muscle use though was able to speak in full sentences. She does not appear to be in any acute distress. ABDOMEN: Soft, nontender, nondistended. Bowel sounds are present in all 4 quadrants. EXTREMITIES: No cyanosis or edema noted. Pulse, motor, and sensory were intact in all extremities. Radial and pedal pulses were 2+ bilaterally. INTEGUMENTARY: The patient's skin is pink, warm, and dry. NEUROLOGICAL: Patient is alert and oriented to person, place, time, and situation. She is able to move all extremities. There are no focal neurological deficits noted. ASSESSMENT AND PLAN: 1. Atrial fibrillation. As per the HPI above. The patient did receive a total of 35 mg of Cardizem IV push though her heart rate was still in the 120s to 140s range. We were about to start Cardizem continuous IV infusion when the patient did convert to sinus rhythm. This was confirmed with the EKG. Given this, we will hold off on the Cardizem drip at this time. We will go ahead and place her back on her p.o. medications. She has been placed on PVC for close monitoring. We will do a series of cardiac enzymes. We will repeat an EKG in the morning. She will be on a heart healthy diet. We will also order TSH. We did go ahead and continue her Cardizem CD 240 mg to be taken in the morning. The patient did state she took her dose of this today already. We will continue her Eliquis for anticoagulation. We have placed a consult with Dr. Coleman from Cardiology. We will await their evaluation and further recommendations for management. 2. COPD exacerbation. The patient was recently diagnosed with upper respiratory infection, was seen in urgent care, and was given an antibiotic injection, steroid injection and azithromycin pack. We will go ahead and complete her antibiotic course for her upper respiratory infection of azithromycin 250 mg p.o. daily x3 doses. We will place her on prednisone 40 mg daily. We will do Xopenex and Atrovent treatments instead of albuterol given her atrial fibrillation and elevated heart rate. We will continue her continuous oxygen therapy. We will also do incentive spirometry, and encouragement to frequently turn cough and deep breathe. We will continue to monitor respiratory status closely. 3. Hypertension. We will continue her daily prescribed medications. 4. Anxiety. We will continue her Ativan. 5. Deep vein thrombosis prophylaxis provided with previously mentioned Eliquis that she takes on a regular basis of 5 mg p.o. b.i.d. 6. She has been placed on PVC unit for close monitoring. We will do strict intake and output. She will be on heart healthy diet. We will repeat a CBC and BMP in the morning. Blood cultures were also obtained. We will do a series of cardiac enzymes. Further orders and recommendations pending hospital course, diagnostic studies, and physician evaluation. Dictated by VIVIANE Green for Wes Woodall MD cc: MD Zion Eckert,
--- NOTE | 2019-04-01 07:32 | EKG Report ---
Test Performed on : 04/01/2019 07:49:03 AM Test Reason : A-Fib Blood Pressure : / mmHG Vent. Rate : 093 BPM Atrial Rate : 093 BPM P-R Int : 150 ms QRS Dur : 062 ms QT Int : 344 ms P-R-T Axes : 078 077 079 degrees QTc Int : 427 ms Sinus rhythm. with premature supraventricular complexes. Otherwise normal ECG When compared with ECG of 01-APR-2019 00:14, (Unconfirmed) premature supraventricular complexes. are now present Unconfirmed Result
[2019-04-01] MEDS ORDERED: AYR NASAL SPRAY NAS PRN (07:42)
[2019-04-01] MEDS: VITAMIN D PO SCH ×2 (07:51→08:44)
[2019-04-01] MEDS: SINGULAIR PO SCH ×2 (07:51→08:44)
[2019-04-01] MEDS: MYCOSTATIN SUSP PO SCH ×5 (07:51→21:41)
[2019-04-01] MEDS: PREDNISONE PO SCH ×2 (07:51→08:44)
[2019-04-01] MEDS: ZITHROMAX PO SCH ×2 (07:52→08:44)
[2019-04-01] MEDS: ELIQUIS PO SCH ×3 (07:52→21:41)
[2019-04-01] MEDS: CARDIZEM CD PO SCH ×2 (07:52→08:45)
[2019-04-01] MEDS: APRESOLINE PO SCH ×4 (07:52→21:41)
[2019-04-01] MEDS: AVAPRO PO SCH ×2 (07:52→08:45)
[2019-04-01] MEDS: XOPENEX NEB INH SCH ×5 (07:57→22:57)
[2019-04-01] MEDS: PULMICORT INH SCH ×2 (08:06→19:52)
[2019-04-01] MEDS: ATROVENT NEB INH SCH ×5 (08:06→22:57)
[2019-04-01] MEDS: ATIVAN PO PRN ×2 (08:32→21:41)
[2019-04-01] MEDS: THERA M PLUS PO SCH (08:34)
[2019-04-01] MEDS: RYTHMOL PO SCH ×2 (11:47→21:41)
--- NOTE | 2019-04-01 12:10 | CONSULTATION ---
DATE OF CONSULTATION: 04/01/2019 IMPRESSION: 1. Recurrent atrial flutter with rapid ventricular rate with associated symptoms of shortness of breath. She was hospitalized several weeks ago with atrial flutter that spontaneously converted back to sinus rhythm. Previously mentioned atrial fibrillation diagnosis earlier this year reviewed and was also atrial flutter. 2. Chronic obstructive pulmonary disease with recent exacerbation. 3. Moderate coronary calcification score with no history of angina. 4. Hypertension. 5. Gastroesophageal reflux disease. RECOMMENDATIONS: 1. Continue long-acting diltiazem. 2. Treatment options to suppress atrial flutter are somewhat limited given her severe COPD and asymptomatic coronary atherosclerosis. At present, favor utilization of low-dose propafenone to see if this may help suppress her atrial flutter. Ultimately, she may benefit from referral to an electrophysiology team for possible atrial flutter ablation. HISTORY: This 78-year-old, white female with past history of severe COPD requiring chronic home oxygen, recurrent atrial flutter (no atrial fibrillation per my review of electrocardiograms here at [facility]), hypertension, gastroesophageal reflux disease was admitted through the emergency room with shortness of breath and atrial flutter with a rapid ventricular rate. She was recently hospitalized here a few weeks ago for COPD exacerbation and manifested an episode of atrial flutter with rapid ventricular rate that spontaneously converted back to sinus rhythm. She has been treated with rate control and anticoagulation, and has been on long-acting Cardizem. She has recently had problems with increasing shortness of breath and has been treated for exacerbation of COPD. Prior to admission, she developed some tachy palpitations that were relatively mild with some increasing shortness of breath, prompting her to come to the emergency room. She was noted to have atrial flutter with rapid ventricular rate. She was treated with intravenous Cardizem and converted back to sinus rhythm. There is no history of angina. PAST MEDICAL HISTORY: 1. Paroxysmal atrial flutter (no atrial fibrillation per my review of [facility] ECGs). 2. Severe chronic obstructive pulmonary disease requiring chronic home oxygen. 3. Hypertension. 4. Gastroesophageal reflux disease. 5. Anxiety disorder. PAST SURGICAL HISTORY: Includes tonsillectomy and hysterectomy. ALLERGIES: She is allergic or intolerant to codeine and benazepril. MEDICATIONS PRIOR TO ADMISSION: As listed. SOCIAL HISTORY: She previously smoked 1 pack of cigarettes per day for about 45 years and quit in 2001. She does not use alcohol. She lives at home alone. She does have a daughter who lives not far away in the [facility]. FAMILY HISTORY: Negative for premature coronary artery disease. REVIEW OF SYSTEMS: Pulmonary: Noncontributory beyond the history of present illness. Gastrointestinal: Negative. Constitutional: Negative. Remainder of the review of systems is negative/noncontributory beyond the history present illness with 14 total systems reviewed. PHYSICAL EXAMINATION: General: This is an elderly, white female in no distress, on supplemental oxygen per nasal cannula. Vital Signs: Blood pressure 132/75, heart rate 83, oxygen saturation 93 to 98 percent. HEENT Examination: Extraocular movements appear to be intact. Mucous membranes moist. Neck: Supple without jugular venous distention. There are no carotid bruits. Chest: Clear to auscultation. Cardiac Examination: Reveals a regular rate and rhythm without appreciable murmur or gallop. Abdomen: Soft. Bowel sounds are normal. Extremities: Without edema. Neurologic: Examination reveals her to be alert and fully oriented. Speech is fluent. She moves all 4 extremities equally well. Skin: Warm and dry. Psychiatric: Examination reveals her mood to be appropriate. PERTINENT DATA: Twelve lead EKG presently shows sinus rhythm and is within normal limits. LABORATORY DATA: Includes a white blood cell count of 6.46, hematocrit 37.2, hemoglobin 11.5, platelet count 378,000. Sodium 139, potassium 4.4, chloride 96, carbon dioxide 31, BUN 9, creatinine 0.6, glucose 137. Initial troponin less than 0.01, Followup troponin less than 0.01. Initial CPK 138, followup CPK 122. TSH 0.86. cc: MD Zion Dey DO
--- NOTE | 2019-04-01 12:29 | PROGRESS NOTE ---
DATE: 04/01/2019 SUBJECTIVE: Today, Ms. Camacho refers to be doing a lot better. She got admitted yesterday because of some shortness of breath and pressure on her chest. She came to the emergency room, where she was found to be in atrial fibrillation with RVR. The patient was given a couple doses of Cardizem IV, and that converted her to normal sinus rhythm in the ER. This morning, she refers to be doing a lot better. A repeat EKG this morning at 8:00 shows normal sinus rhythm with occasional PVCs. OBJECTIVE: Current Vital Signs: Blood pressure is 145/63, pulse of 90, respirations 18, temperature 98.5 degrees. General: Ms. Camacho is a 78-year-old, elderly, female. She is in bed. She is on nasal cannula. HEENT: Mucosa is pink and moist. Anicteric. Acyanotic. Neck: Supple. Chest: Air entry is bilaterally reduced, but there is no wheezing or rhonchi. Cardiovascular: Regular rate and rhythm with occasional extrasystolic beat. Abdomen: Soft. Extremities: No pedal edema. 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 LABORATORY DATA: CBC shows a mild normocytic anemia. Chemistry is reviewed and is unremarkable. TSH is normal. MEDICATIONS: The patient's current medications have all been reviewed. ASSESSMENT: 1. Atrial fibrillation with rapid ventricular response on presentation. The patient was treated in the emergency room. This spontaneously converted. She is currently back to her home medications. Will follow up with any further recommendations from Cardiology. 2. Chronic obstructive pulmonary disease in exacerbation. The patient is on standard of care. The patient was being already treated at home for upper respiratory tract infection/sinusitis. Will continue with her azithromycin. 3. Chronic hypoxemia, on home oxygen therapy. 4. Hypertension, controlled. 5. Anxiety disorder. In general, I think Ms. Camacho is doing well. She is currently on 4 liters of nasal cannula. She is saturating very adequately. Hemodynamically stable. She is in sinus rhythm. I think she is back to her baseline. Will be pending final recommendations from Cardiology, and hopefully get her home either today or tomorrow. cc: MD Zion Lacy, DO
[2019-04-02] MEDS: ATROVENT NEB INH SCH ×3 (04:56→11:48)
[2019-04-02] MEDS: XOPENEX NEB INH SCH ×3 (04:56→11:48)
[2019-04-02] MEDS: PRILOSEC PO SCH ×2 (05:50→06:16)
[2019-04-02] MEDS: PULMICORT INH SCH (08:07)
[2019-04-02] MEDS: ZITHROMAX PO SCH (08:13)
[2019-04-02] MEDS: APRESOLINE PO SCH (08:13)
[2019-04-02] MEDS: COLACE PO SCH (08:13)
[2019-04-02] MEDS: CARDIZEM CD PO SCH (08:14)
[2019-04-02] MEDS: ELIQUIS PO SCH (08:14)
[2019-04-02] MEDS: RYTHMOL PO SCH (08:14)
[2019-04-02] MEDS: SINGULAIR PO SCH (08:14)
[2019-04-02] MEDS: AVAPRO PO SCH (08:14)
[2019-04-02] MEDS: PREDNISONE PO SCH (08:14)
[2019-04-02] MEDS: THERA M PLUS PO SCH (08:14)
[2019-04-02] MEDS: VITAMIN D PO SCH (08:14)
[2019-04-02] MEDS: MYCOSTATIN SUSP PO SCH ×2 (08:14→13:06)
[2019-04-02 11:26] VITALS: BP 158/68
--- NOTE | 2019-04-02 14:49 | PROGRESS NOTE ---
DATE: 04/02/2019 SUBJECTIVE: The patient continues without chest discomfort or shortness of breath. She continues in sinus rhythm without recurrence of atrial flutter. OBJECTIVE: Vital Signs: Blood pressure 158/68, heart rate 76, oxygen saturation 100%. Neck: There is no significant jugular venous distention. Chest: Clear to auscultation bilaterally. Cardiac: Regular rate and rhythm without appreciable murmur or gallop. Extremities: There is no evidence of peripheral edema. DIAGNOSTIC DATA: A 12-lead EKG demonstrates sinus rhythm with occasional premature complex, but is otherwise within normal limits. QT interval is normal. LABORATORY DATA: Includes a white blood cell count 6.46, hematocrit 37.2, hemoglobin 11.5. IMPRESSION: 1. Recurrent atrial flutter with rapid ventricular rate with associated symptoms of shortness of breath. The patient continues in sinus rhythm on diltiazem and low-dose propafenone. 2. Chronic obstructive pulmonary disease with recent exacerbation. 3. Moderate coronary calcification score with no history of angina. 4. Hypertension. RECOMMENDATIONS: 1. Continue long-acting diltiazem and low-dose propafenone. 2. Continue anticoagulation with Eliquis. 3. The patient appears clinically stable to be discharged to home from a cardiovascular standpoint. She has followup with me in 2 days. cc: MD Zion Dey DO
--- NOTE | 2019-04-03 13:25 | DISCHARGE SUMMARY ---
ADMISSION DATE: 03/31/2019 DISCHARGE DATE: 04/02/2019 DISPOSITION: Home. FOLLOWUP: 1. Dr. Mario. 2. Dr. Zion Bergman. CONSULTATIONS DURING THIS ADMISSION: Cardiology was consulted. Patient was seen by Dr. Mario. INVASIVE PROCEDURES DONE DURING THIS ADMISSION: None. IMAGING STUDIES OF SIGNIFICANCE: A chest x-ray done on 03/31/2019 shows emphysema. No pneumonia. ADMISSION DIAGNOSES: 1. Atrial fibrillation. 2. Chronic obstructive pulmonary disease exacerbation. 3. Hypertension. DISCHARGE DIAGNOSES: 1. Atrial fibrillation/atrial flutter with rapid ventricular response on presentation. 2. Symptomatic cardiac arrhythmia on presentation. 3. Severe chronic obstructive pulmonary disease in exacerbation. 4. Chronic hypoxemia, on home oxygen. 5. Hypertension. 6. Anxiety disorder. DISCHARGE MEDICATIONS: 1. Spiriva 1 inhaler daily. 2. Omeprazole 40 mg p.o. daily. 3. Multivitamin 1 tablet daily. 4. Lorazepam 0.5 b.i.d. 5. Irbesartan 150 p.o. daily. 6. Eliquis 5 mg b.i.d. 7. Cholecalciferol. 8. Hydralazine 10 mg 3 times per day. 9. Singulair 10 mg p.o. daily. 10. ProAir inhaler 2 puffs p.r.n. 11. Symbicort 2 puffs b.i.d. 12. Diltiazem 240 p.o. daily. 13. Prednisone 40 mg p.o. daily. 14. Azithromycin 250 p.o. daily. 15. Propafenone (Rythmol) 150 p.o. b.i.d. PRESENTING COMPLAINT: Elevated heart rate and shortness of breath. HISTORY OF PRESENTING COMPLAINT: Ms. Camacho is a 78-year-old, female who has a history of paroxysmal atrial fibrillation, atrial flutter, end-stage COPD on home oxygen, hypertension. Came to the emergency department because of shortness of breath. Was found to be in atrial fibrillation/atrial flutter, RVR. Heart rate was 128 at some point. She was admitted to the medical floor. She was started on her home medications. HOSPITAL COURSE: Ms. Camacho was admitted to [facility]. She was in mild hypoxemic failure so she was started on a little higher concentration of oxygen than her baseline. She was also started on steroids, antimicrobial therapy, and bronchodilation for the COPD exacerbation. Heart rate got under control. Cardiology was consulted. Patient was seen by Dr. Mario. She was started on propafenone (Rythmol) and her heart rate remained in sinus. She has been completely stable. We think she is stable to be discharged. She has been evaluated today by cardiology and Dr. Mario also agrees that the patient can be discharged and that she has a followup appointment with him in 2 days' time. Ms. Camacho is therefore being discharged in stable condition. She will follow up with Dr. Mario and Dr. Purcell as well as Dr. Zion Bergman. All the discharge instructions discussed with Ms. Camacho. She voiced understanding. At the time of the discharge, her vitals, blood pressure was 158/68, pulse of 73, respirations are 18, temperature is 98.4 degrees. Time spent for discharge is 36 minutes. cc: MD Zion Lacy, DO
== END 2019-04-02 14:34 | disposition home health service (06) | DRG 308 ==
LOC: ED 18:33 → 2N 22:47 → SUATTDRO 22:47
PROVIDERS: ADMIT Internal Medicine; ATTEND Internal Medicine